=== PATIENT | female | born 1995 | race Caucasian/White ===

== ENCOUNTER → 2016-08-22 | Outpatient (CLI) | payer BC ==
--- NOTE | 2016-08-22 13:19 | US ---
EXAMINATION TYPE: US abdomen complete DATE OF EXAM: 08/22/2016 7:28 AM COMPARISON: NONE CLINICAL HISTORY: R10.11 Right upper quadrant pain. EXAM MEASUREMENTS: Liver Length: 12.1 cm Gallbladder Wall: 0.1 cm CBD: 0.4 cm Spleen: 9.7 cm Right Kidney: 11.1 x 3.8 x 4.5 cm Left Kidney: 10.8 x 5.6 x 5.2 cm Pancreas: Tail partially obscured by overlying bowel gas Liver: wnl Gallbladder: wnl Evidence for sonographic Andrews's sign: No CBD: wnl Spleen: wnl Right Kidney: wnl Left Kidney: wnl Upper IVC: wnl Abd Aorta: partially obscured by overlying bowel gas There is no ascites. The liver is homogenous. The intrahepatic portion of the IVC and proximal abdominal aorta are within normal limits. There is no evidence of cholelithiasis. Common bile duct is unremarkable. The visu alized portions of the pancreas are homogenous. The spleen is unremarkable. Kidneys are symmetric a nd free of hydronephrosis. No renal lesions are seen. IMPRESSION: No significant abnormality evident
== END | disposition home or self-care (01) ==
LOC: RADUSWWP 06:56
PROVIDERS: ATTEND Internal Medicine
DX: R10.11 Right upper quadrant pain (principal)
CPT/HCPCS: 76700

== ENCOUNTER 2016-08-24 08:32 | Emergency (ER) | payer BC ==
[2016-08-24] MEDS ORDERED: SODIUM CHLORIDE 0.9% 1,000 ML IV ONE (09:01)
[2016-08-24] MEDS ORDERED: methylPREDNISolone SOD SUCCI 125 MG/2 ML VIAL IV STA (09:01)
[2016-08-24] MEDS ORDERED: CLINDAMYCIN 150 MG CAP PO STA (09:02)
--- NOTE | 2016-08-24 09:04 | ED ---
General Adult HPI - General Chief complaint: Allergic Reaction Stated complaint: toothache Time Seen by Provider: 08/24/16 08:45 Source: patient, RN notes reviewed Mode of arrival: ambulatory Limitations: no limitations - History of Present Illness Initial comments: Patient is 21-year-old female presents emergency room for evaluation of facial swelling. Patient states that she has 2 bottom molars that are broken and needs to be removed. Patient states she went to [facility] on Sunday and was placed on amoxicillin. Patient states she's been on amoxicillin for the past 5 days. Patient states about 3 days ago she began having swelling on the left side of her lower jaw. Patient states that she woke up this morning and began having swelling under her chin. Patient states she feels like underneath her tongue is swelling. Patient states she wasn't sure she was having an ALLERGIC reaction so she came here to be evaluated. Patient denies any rashes. Patient states she has been having increasing pain under her chin and under her tongue. Patient denies fevers or chills. Patient denies any pus coming out of her tooth. Patient denies any shortness of breath or trouble breathing. - Related Data Home Medications Medication Instructions Recorded Confirmed Acetaminophen-Codeine 300-30mg 1 tab PO Q4H PRN 08/24/16 08/24/16 [Tylenol #3] Amoxicillin 500 mg PO Q8H 08/24/16 08/24/16 Dextroamphetamine/Amphetamine 15 mg PO QAM 08/24/16 08/24/16 [Adderall Xr] Ibuprofen 800 mg PO Q5H PRN 08/24/16 08/24/16 Multivitamin [Multivitamins Adult 2 tab PO DAILY 08/24/16 08/24/16 Gummies] Previous Rx's Medication Instructions Recorded Clindamycin [Cleocin] 300 mg PO Q6H #40 capsule 08/24/16 Ibuprofen 600 mg PO Q4-6H PRN #20 tablet 08/24/16 Allergies Allergy/AdvReac Type Severity Reaction Status Date / Time No Known Allergies Allergy Verified 08/24/16 09:10 Review of Systems ROS Statement: Those systems with pertinent positive or pertinent negative responses have been documented in the HPI. ROS Other: All systems not noted in ROS Statement are negative. Past Medical History Past Medical History: No Reported History History of Any Multi-Drug Resistant Organisms: None Reported Past Surgical History: No Surgical Hx Reported Past Psychological History: No Psychological Hx Reported Smoking Status: Current every day smoker Past Alcohol Use History: None Reported Past Drug Use History: None Reported General Exam - General Exam Comments Initial Comments: Sitting in exam room, no acute distress. Limitations: no limitations General appearance: alert, in no apparent distress Head exam: Present: atraumatic, normocephalic, normal inspection Eye exam: Present: normal appearance ENT exam: Present: other (Left-sided facial edema with mild edema under the chin , no erythema or heat) Expanded Teeth exam: Present: fractured tooth # (), dental tenderness # () Neck exam: Present: normal inspection Respiratory exam: Present: normal lung sounds bilaterally. Absent: respiratory distress Cardiovascular Exam: Present: regular rate, normal rhythm, normal heart sounds Extremities exam: Present: normal inspection Back exam: Present: normal inspection Neurological exam: Present: alert, oriented X3, CN II-XII intact, normal gait Psychiatric exam: Present: normal affect, normal mood Skin exam: Present: warm, dry, intact, normal color. Absent: rash Course Vital Signs 08/24/16 08/24/16 08/24/16 08:33 09:53 10:43 Temperature 97.8 F 98.2 F Pulse Rate 90 87 79 Respiratory 20 16 18 Rate Blood Pressure 127/74 135/70 135/79 O2 Sat by Pulse 98 100 100 Oximetry Medical Decision Making - Medical Decision Making Patient is a 21-year-old female presents to the emergency room for evaluation of facial edema from dental pain. Patient did have some facial edema under her chin. Patient also evaluated by Dr. Siddiqi. Laboratory showed no acute findings. Patient states she feels better after steroids and new antibiotic given. Patient states she would like to be discharged home. Will switch patient from amoxicillin to clindamycin. Advised patient to return for any worsening symptoms. Advised patient to follow-up with oral surgeon or her dentist as soon as possible. Patient is afebrile. Patient's vitals are stable. Patient has no trouble breathing. Patient states she understands everything that was discussed with her. Case discussed with Dr. Siddiqi. - Lab Data Result diagrams: 08/24/16 09:17 08/24/16 09:17 Lab Results 08/24/16 08/24/16 Range/Units 09:17 09:17 WBC 8.4 (3.8-10.6) k/uL RBC 4.23 (3.80-5.40) m/uL Hgb 13.6 (11.4-16.0) gm/dL Hct 39.4 (34.0-46.0) % MCV 93.1 D (80.0-100.0) fL MCH 32.0 (25.0-35.0) pg MCHC 34.4 (31.0-37.0) g/dL RDW 13.2 (11.5-15.5) % Plt Count 234 (150-450) k/uL Neutrophils % 75 % Lymphocytes % 17 % Monocytes % 5 % Eosinophils % 2 % Basophils % 0 % Neutrophils # 6.3 (1.3-7.7) k/uL Lymphocytes # 1.4 (1.0-4.8) k/uL Monocytes # 0.4 (0-1.0) k/uL Eosinophils # 0.1 (0-0.7) k/uL Basophils # 0.0 (0-0.2) k/uL Sodium 139 (137-145) mmol/L Potassium 4.5 (3.5-5.1) mmol/L Chloride 107 (98-107) mmol/L Carbon Dioxide 24 (22-30) mmol/L Anion Gap 8 mmol/L BUN 11 (7-17) mg/dL Creatinine 0.64 (0.52-1.04) mg/dL Est GFR (MDRD) Af Amer >60 (>60 ml/min/1.73 sqM) Est GFR (MDRD) Non-Af >60 (>60 ml/min/1.73 sqM) Glucose 85 (74-99) mg/dL Calcium 9.1 (8.4-10.2) mg/dL Total Bilirubin 0.8 (0.2-1.3) mg/dL AST 29 (14-36) U/L ALT 39 (9-52) U/L Alkaline Phosphatase 58 (38-126) U/L Total Protein 7.6 (6.3-8.2) g/dL Albumin 4.4 (3.5-5.0) g/dL Disposition Clinical Impression: Pain, dental Disposition: HOME SELF-CARE Condition: Good Instructions: Dental Abscess (ED) Additional Instructions: Please follow-up with your dentist or oral surgeon. Discontinue amoxicillin and begin taking clindamycin as directed. Take ibuprofen as needed for pain. Saltwater gargles. Cold fluids can sometimes help with pain as well. Return to the Emergency Room for any worsening or changing symptoms. Use cold compresses to the outside of the face. Prescriptions: Clindamycin [Cleocin] 300 mg PO Q6H #40 capsule Ibuprofen 600 mg PO Q4-6H PRN #20 tablet PRN Reason: Pain Referrals: Karel Braga DDS [STAFF PHYSICIAN] - 1-2 days Time of Disposition: 10:25
[2016-08-24 09:35] LABS: Basophils % (A) 0 %; CHCM 33.4; Eosinophils # (A) 0.1 k/uL (0-0.7); Eosinophils % (A) 2 %; HCT 39.4 % (34.0-46.0); HDW 2.39; HGB 13.6 gm/dL (11.4-16.0); Luc # (Auto) 0.13; Luc % (Auto) 2; Lymphocytes # (A) 1.4 k/uL (1.0-4.8); Lymphocytes % (A) 17 %; MCHC 34.4 g/dL (31.0-37.0); Mean Platelet Volume 7.2; Monocytes # (A) 0.4 k/uL (0-1.0); Monocytes % (A) 5 %; Neutrophils # (A) 6.3 k/uL (1.3-7.7); Neutrophils % (A) 75 %; RBC 4.23 m/uL (3.80-5.40); RDW 13.2 % (11.5-15.5); WBC 8.4 k/uL (3.8-10.6); WBC (Perox) 8.58
[2016-08-24 09:41] LABS: ALT 39 U/L (9-52); AST 29 U/L (14-36); Alkaline Phosphatase 58 U/L (38-126); Anion Gap 8 mmol/L; Blood Urea Nitrogen 11 mg/dL (7-17); Calcium 9.1 mg/dL (8.4-10.2); Carbon Dioxide 24 mmol/L (22-30); Chloride 107 mmol/L (98-107); Glucose 85 mg/dL (74-99); Non-African American GFR(MDRD) >60 (>60 ml/min/1.73 sqM); Potassium 4.5 mmol/L (3.5-5.1); Sodium 139 mmol/L (137-145); Total Bilirubin 0.8 mg/dL (0.2-1.3); Total Protein 7.6 g/dL (6.3-8.2)
[2016-08-24 09:42] LABS: MCV 93.1 fL (80.0-100.0)
[2016-08-24] MEDS ORDERED: IBUPROFEN 600 MG TAB PO STA (10:25)
[2016-08-24 10:43] VITALS: BP 135/79; PULSE 79; RESP 18; TEMP 98.2
== END 2016-08-24 10:43 | disposition home or self-care (01) ==
LOC: EC 08:32
DX: S02.5XXA Fracture of tooth (traumatic), initial encounter for closed fracture (principal); F17.200 Nicotine dependence, unspecified, uncomplicated; Z79.899 Other long term (current) drug therapy; X58.XXXA Exposure to other specified factors, initial encounter
CPT/HCPCS: 36415; 80053; 85025; 99283; 96374; 96361; J2930

== ENCOUNTER 2017-01-20 16:09 | Emergency (ER) | payer BC ==
--- NOTE | 2017-01-20 16:55 | ED ---
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 She do not want him transferred her ultrasound today she is just here to follow-up on her beta hCG quantitative. Since she had this test done at the [facility] we can get some records from the [facility]. She denies any abdominal pain no back pain no abdominal cramps no fever no chills no frequency urgency dysuria, she is not interested in her transfer is no ultrasound or pelvic exam today she is more so interested in beta hCG Last Menstrual Period: 12/02/16 - Related Data Home Medications Medication Instructions Recorded Confirmed No Known Home Medications [No 01/20/17 01/20/17 Known Home Medications] Allergies Allergy/AdvReac Type Severity Reaction Status Date / Time No Known Allergies Allergy Verified 01/20/17 16:53 Review of Systems ROS Statement: Those systems with pertinent positive or pertinent negative responses have been documented in the HPI. ROS Other: All systems not noted in ROS Statement are negative. Past Medical History Past Medical History: No Reported History History of Any Multi-Drug Resistant Organisms: None Reported Past Surgical History: No Surgical Hx Reported Past Psychological History: No Psychological Hx Reported Smoking Status: Former smoker Past Alcohol Use History: None Reported Past Drug Use History: None Reported General Exam - General Exam Comments Initial Comments: General: The patient is awake and alert, in no distress, and does not appear acutely ill. Skin: Skin is warm and dry and no rashes or lesions are noted. Eye: Pupils are equal, round and reactive to light, extra-ocular movements are intact; there is normal conjunctiva bilaterally. Ears, nose, mouth and throat: There are moist mucous membranes and no oral lesions. Neck: The neck is supple, there is no tenderness or JVD. Cardiovascular: There is a regular rate and rhythm. No murmur, rub or gallop is appreciated. Respiratory: To auscultation bilateral, no wheezing no rhonchi no distress respiratory chan noticed Gastrointestinal: Soft, non-distended, non-tender abdomen without masses or organomegaly noted. There is no rebound or guarding present. Bowel sounds are unremarkable. Back: There is no tenderness to palpation in the midline. There is no obvious deformity. Musculoskeletal: Normal ROM, no tenderness, There is no pedal edema. There is no calf tenderness or swelling. No cords were appreciated. Neurological: CN II-XII intact, Cranial nerves III through XII are intact. There are no obvious motor or sensory deficits. Coordination appears grossly intact. Speech is normal. Psychiatric: Cooperative, appropriate mood & affect, normal judgment. Limitations: no limitations Course Vital Signs 01/20/17 16:18 Temperature 98.1 F Pulse Rate 88 Respiratory 20 Rate Blood Pressure 128/59 O2 Sat by Pulse 100 Oximetry We called [facility] and found out to about her beta hCG report yesterday beta hCG was 2414 yesterday and beta-hCG today 1500, this was explained to the patient with the beta hCG level dropping the probability of miscarriage is quite high she be discharged to follow with her family doctor or she is to come back if develops severe bleeding, fever, abdominal pain, abdominal cramps or lower back pain she agrees with the period under normal circumstances she is advised to repeat the beta hCG in couple days, patient did not want to proceed with the pelvic ultrasound today I did the eye did get ultrasound report back from [facility] it shows nonvisualized gestation, they recommended follow- up ultrasound and carotid differential diagnosis includes early failed or non-visualized ectopic though patient hasn't no pain at this point and she has no bleeding at this point - Reevaluation(s) Reevaluation #1: Possibility Ectopic was discussed with the patient and she was advised to come to the ER if there is a abdominal pain or bleeding, and that eventually need a pelvic ultrasound 01/20/17 18:50 Medical Decision Making - Lab Data Result diagrams: 01/20/17 17:10 Lab Results 01/20/17 01/20/17 Range/Units 17:10 17:10 WBC 8.7 (3.8-10.6) k/uL RBC 4.40 (3.80-5.40) m/uL Hgb 13.5 (11.4-16.0) gm/dL Hct 40.6 (34.0-46.0) % MCV 92.2 (80.0-100.0) fL MCH 30.6 (25.0-35.0) pg MCHC 33.2 (31.0-37.0) g/dL RDW 12.8 (11.5-15.5) % Plt Count 299 (150-450) k/uL Neutrophils % 65 % Lymphocytes % 25 % Monocytes % 5 % Eosinophils % 2 % Basophils % 1 % Neutrophils # 5.6 (1.3-7.7) k/uL Lymphocytes # 2.2 (1.0-4.8) k/uL Monocytes # 0.5 (0-1.0) k/uL Eosinophils # 0.2 (0-0.7) k/uL Basophils # 0.1 (0-0.2) k/uL HCG, Quant 1535.7 mIU/mL Disposition Clinical Impression: Threatened Disposition: HOME SELF-CARE Condition: Good Instructions: Threatened Miscarriage (ED) Referrals: Tod Kay MD [Primary Care Provider] - 1-2 days
[2017-01-20 17:18] LABS: Basophils # (A) 0.1 k/uL (0-0.2); Basophils % (A) 1 %; CH 30.9; CHCM 33.6; Eosinophils # (A) 0.2 k/uL (0-0.7); Eosinophils % (A) 2 %; HCT 40.6 % (34.0-46.0); HDW 2.32; HGB 13.5 gm/dL (11.4-16.0); Luc # (Auto) 0.16; Luc % (Auto) 2; Lymphocytes # (A) 2.2 k/uL (1.0-4.8); Lymphocytes % (A) 25 %; MCH 30.6 pg (25.0-35.0); MCHC 33.2 g/dL (31.0-37.0); MCV 92.2 fL (80.0-100.0); Mean Platelet Volume 6.7; Monocytes # (A) 0.5 k/uL (0-1.0); Monocytes % (A) 5 %; Neutrophils # (A) 5.6 k/uL (1.3-7.7); Neutrophils % (A) 65 %; RDW 12.8 % (11.5-15.5); WBC 8.7 k/uL (3.8-10.6); WBC (Perox) 8.67
[2017-01-20 18:59] VITALS: BP 124/57; PULSE 53; RESP 14; TEMP 97.7
== END 2017-01-20 19:05 | disposition home or self-care (01) ==
LOC: EC 16:09
DX: O20.0 Threatened abortion (principal); Z87.891 Personal history of nicotine dependence; Z3A.01 Less than 8 weeks gestation of pregnancy
CPT/HCPCS: 36415; 84702; 85025; 99284

== ENCOUNTER 2017-01-22 11:46 | Emergency (ER) | payer BC ==
[2017-01-22 12:12] VITALS: RESP 18
[2017-01-22] MEDS ORDERED: SODIUM CHLORIDE 0.9% 500 ML IV STA (12:35)
--- NOTE | 2017-01-22 12:38 | ED ---
General Adult HPI - General Chief complaint: Abdominal Pain Stated complaint: ABDOMINAL PAIN Time Seen by Provider: 01/22/17 12:21 Source: patient, RN notes reviewed Mode of arrival: ambulatory Limitations: no limitations - History of Present Illness Initial comments: 21-year-old female presents to the emergency department with a chief complaint of abdominal pain. Patient was seen here a few days ago because she is bleeding in . Patient states she's now pain. pt underwent an Ultrasound that did not see anything. She was so she develop any pain to return the emergency room. Patient states she's now having lower abdominal pain. Patient states she is having some vaginal spotting for her bleeding has. Patient was concerned due to her worsening pain and symptoms so she thought that she should be evaluated. Patient is a . Patient states she's not having any other symptoms at this time. Patient denies any recent fever, chills , shortness of breath, chest pain, back pain, nausea vomiting, numbness or tingling, dysuria or hematuria, constipation or diarrhea, headaches or visual changes, or any other current symptoms. - Related Data Home Medications Medication Instructions Recorded Confirmed No Known Home Medications [No 01/20/17 01/22/17 Known Home Medications] Allergies Allergy/AdvReac Type Severity Reaction Status Date / Time No Known Allergies Allergy Verified 01/22/17 13:42 Review of Systems ROS Statement: Those systems with pertinent positive or pertinent negative responses have been documented in the HPI. ROS Other: All systems not noted in ROS Statement are negative. Past Medical History Past Medical History: No Reported History History of Any Multi-Drug Resistant Organisms: None Reported Past Surgical History: No Surgical Hx Reported Past Psychological History: ADD/ADHD Smoking Status: Former smoker Past Alcohol Use History: None Reported Past Drug Use History: None Reported General Exam - General Exam Comments Initial Comments: General: The patient is awake and alert, in no distress, and does not appear acutely ill. Eye: Pupils are equal, round and reactive to light, extra-ocular movements are intact; there is normal conjunctiva bilaterally. No signs of icterus. Ears, nose, mouth and throat: There are moist mucous membranes. Neck: The neck is supple, there is no tenderness. Cardiovascular: There is a regular rate and rhythm. No murmur, rub or gallop is appreciated. Respiratory: Lungs are clear to auscultation, respirations are non-labored, breath sounds are equal. No wheezes, stridor, rales, or rhonchi. Gastrointestinal: Soft, non-distended, tenderness throughout the lower areas of the abdomen without masses or organomegaly noted. There is no rebound or guarding present. No CVA tenderness. Bowel sounds are unremarkable. Back: There is no tenderness to palpation in the midline. There is no obvious deformity. No rashes noted. Musculoskeletal: Normal ROM, no tenderness, There is no pedal edema. There is no calf tenderness or swelling. Sensation intact. Pulses equal bilaterally 2+. Neurological: CN II-XII intact, There are no obvious motor or sensory deficits. Coordination appears grossly intact. Speech is normal. Skin: Skin is warm and dry and no rashes or lesions are noted. Psychiatric: Cooperative, appropriate mood & affect, normal judgment. Limitations: no limitations Course Vital Signs 01/22/17 12:08 Temperature 99 F Pulse Rate 79 Respiratory 18 Rate Blood Pressure 116/66 O2 Sat by Pulse 100 Oximetry Medical Decision Making - Medical Decision Making 21-year-old female presents emergency room chief complaint of abdominal pain in . At this time patient's lab work has been reviewed as well as ultrasound. This time we discussed clear still. When he struck for a CT level. We discussed needs to be repeated 2 days. She is feeling better at this time. Ultrasound was reviewed and we discussed in detail of reasons to return to the emergency department. The TRAINING ASSISTANT QUESTIONS. She stated that she understood and she is in agreement with this plan. All questions have been answered. She'll be discharged. - Lab Data Result diagrams: 01/22/17 12:54 01/22/17 12:54 Lab Results 01/22/17 01/22/17 01/22/17 Range/Units 12:54 12:54 12:54 WBC 8.1 (3.8-10.6) k/uL RBC 4.26 (3.80-5.40) m/uL Hgb 13.0 (11.4-16.0) gm/dL Hct 39.7 (34.0-46.0) % MCV 93.2 (80.0-100.0) fL MCH 30.5 (25.0-35.0) pg MCHC 32.7 (31.0-37.0) g/dL RDW 12.9 (11.5-15.5) % Plt Count 306 (150-450) k/uL Neutrophils % 74 % Lymphocytes % 16 % Monocytes % 6 % Eosinophils % 2 % Basophils % 1 % Neutrophils # 6.0 (1.3-7.7) k/uL Lymphocytes # 1.3 (1.0-4.8) k/uL Monocytes # 0.5 (0-1.0) k/uL Eosinophils # 0.1 (0-0.7) k/uL Basophils # 0.1 (0-0.2) k/uL Sodium 141 (137-145) mmol/L Potassium 4.2 (3.5-5.1) mmol/L Chloride 107 (98-107) mmol/L Carbon Dioxide 23 (22-30) mmol/L Anion Gap 11 mmol/L BUN 8 (7-17) mg/dL Creatinine 0.68 (0.52-1.04) mg/dL Est GFR (MDRD) Af Amer >60 (>60 ml/min/1.73 sqM) Est GFR (MDRD) Non-Af >60 (>60 ml/min/1.73 sqM) Glucose 81 (74-99) mg/dL Calcium 9.2 (8.4-10.2) mg/dL Total Bilirubin 0.4 (0.2-1.3) mg/dL AST 24 (14-36) U/L ALT 27 (9-52) U/L Alkaline Phosphatase 61 (38-126) U/L Total Protein 7.2 (6.3-8.2) g/dL Albumin 4.3 (3.5-5.0) g/dL HCG, Quant 1371.0 mIU/mL Urine Color Urine Appearance (Clear) Urine pH (5.0-8.0) Ur Specific [place] (1.001-1.035) Urine Protein (Negative) Urine Glucose (UA) (Negative) Urine Ketones (Negative) Urine Blood (Negative) Urine Nitrite (Negative) Urine Bilirubin (Negative) Urine Urobilinogen (<2.0) mg/dL Ur Leukocyte Esterase (Negative) Urine RBC (0-5) /hpf Urine WBC (0-5) /hpf Ur Squamous Epith Cells (0-4) /hpf Blood Type B Positive Blood Type Recheck No 01/22/17 Range/Units 12:54 WBC (3.8-10.6) k/uL RBC (3.80-5.40) m/uL Hgb (11.4-16.0) gm/dL Hct (34.0-46.0) % MCV (80.0-100.0) fL MCH (25.0-35.0) pg MCHC (31.0-37.0) g/dL RDW (11.5-15.5) % Plt Count (150-450) k/uL Neutrophils % % Lymphocytes % % Monocytes % % Eosinophils % % Basophils % % Neutrophils # (1.3-7.7) k/uL Lymphocytes # (1.0-4.8) k/uL Monocytes # (0-1.0) k/uL Eosinophils # (0-0.7) k/uL Basophils # (0-0.2) k/uL Sodium (137-145) mmol/L Potassium (3.5-5.1) mmol/L Chloride (98-107) mmol/L Carbon Dioxide (22-30) mmol/L Anion Gap mmol/L BUN (7-17) mg/dL Creatinine (0.52-1.04) mg/dL Est GFR (MDRD) Af Amer (>60 ml/min/1.73 sqM) Est GFR (MDRD) Non-Af (>60 ml/min/1.73 sqM) Glucose (74-99) mg/dL Calcium (8.4-10.2) mg/dL Total Bilirubin (0.2-1.3) mg/dL AST (14-36) U/L ALT (9-52) U/L Alkaline Phosphatase (38-126) U/L Total Protein (6.3-8.2) g/dL Albumin (3.5-5.0) g/dL HCG, Quant mIU/mL Urine Color Light Yellow Urine Appearance Clear (Clear) Urine pH 6.5 (5.0-8.0) Ur Specific [place] 1.006 (1.001-1.035) Urine Protein Negative (Negative) Urine Glucose (UA) Negative (Negative) Urine Ketones Negative (Negative) Urine Blood Large H (Negative) Urine Nitrite Negative (Negative) Urine Bilirubin Negative (Negative) Urine Urobilinogen <2.0 (<2.0) mg/dL Ur Leukocyte Esterase Trace H (Negative) Urine RBC 3 (0-5) /hpf Urine WBC 2 (0-5) /hpf Ur Squamous Epith Cells 2 (0-4) /hpf Blood Type Blood Type Recheck - Radiology Data Radiology results: report reviewed, image reviewed Disposition Clinical Impression: Threatened Disposition: HOME SELF-CARE Condition: Stable Instructions: Threatened Miscarriage (ED) Additional Instructions: Please use medication as discussed. Please follow up with family doctor if symptoms have not improved over the next two days. Please return to the emergency room if your symptoms increase or worsen or for any other concerns. Referrals: Tod Kay MD [Primary Care Provider] - 1-2 days Carolina Galo DO [Doctor of Osteopathic Medicine] - 1-2 days Time of Disposition: 14:03
[2017-01-22 13:08] LABS: Basophils # (A) 0.1 k/uL (0-0.2); Basophils % (A) 1 %; CH 30.8; CHCM 33.2; Eosinophils # (A) 0.1 k/uL (0-0.7); Eosinophils % (A) 2 %; HCT 39.7 % (34.0-46.0); HDW 2.33; Luc # (Auto) 0.12; Luc % (Auto) 2; Lymphocytes # (A) 1.3 k/uL (1.0-4.8); Lymphocytes % (A) 16 %; MCH 30.5 pg (25.0-35.0); MCHC 32.7 g/dL (31.0-37.0); MCV 93.2 fL (80.0-100.0); Mean Platelet Volume 7.1; Monocytes # (A) 0.5 k/uL (0-1.0); Monocytes % (A) 6 %; Neutrophils % (A) 74 %; RBC 4.26 m/uL (3.80-5.40); RDW 12.9 % (11.5-15.5); WBC 8.1 k/uL (3.8-10.6); WBC (Perox) 7.68
[2017-01-22 13:16] LABS: ALT 27 U/L (9-52); AST 24 U/L (14-36); Alkaline Phosphatase 61 U/L (38-126); Anion Gap 11 mmol/L; Blood Urea Nitrogen 8 mg/dL (7-17); Calcium 9.2 mg/dL (8.4-10.2); Carbon Dioxide 23 mmol/L (22-30); Chloride 107 mmol/L (98-107); Glucose 81 mg/dL (74-99); Non-African American GFR(MDRD) >60 (>60 ml/min/1.73 sqM); Potassium 4.2 mmol/L (3.5-5.1); Sodium 141 mmol/L (137-145); Total Bilirubin 0.4 mg/dL (0.2-1.3); Total Protein 7.2 g/dL (6.3-8.2)
[2017-01-22 13:40] LABS: Appearance,Urine Clear (Clear); Bilirubin,Urine Negative (Negative); Glucose,Urine (UA) Negative (Negative); Ketones,Urine Negative (Negative); Leukocyte Esterase,Urine Trace (Negative); Nitrite,Urine Negative (Negative); PH, Urine 6.5 (5.0-8.0); Particle Count 1104; Protein,Urine Negative (Negative); RBC,Urine 3 /hpf (0-5); Specific Gravity,Urine 1.006 (1.001-1.035); Squamous Epithelial Cell,Urine 2 /hpf (0-4); UA Billing (MACRO vs. MICRO) MICRO; Urobilinogen,Urine <2.0 mg/dL (<2.0); WBC,Urine 2 /hpf (0-5)
--- NOTE | 2017-01-22 13:49 | US ---
EXAMINATION TYPE: US OB <=14 wks transvag DATE OF EXAM: 01/22/2017 COMPARISON: NONE CLINICAL HISTORY: Pain. EXAM PERFORMED: Transvaginal (TV) and Transabdominal (TA) EXAM MEASUREMENTS: GESTATIONAL AGE / DATING Physician Established: Not yet established Dates by LMP: (7 weeks/2 days) EDC: 09/08/17 Dates by First Scan: No previous EDC: Dates by Current Scan for: Unable to date by today's study MATERNAL ANATOMY Uterus: 7.6 x 3.9 x 5.1cm Right Ovary: not visualized Left Ovary: 1.9 x 1.4 x 1.8cm Post CDS / Adnexa: free fluid in cul de sac GESTATION / SURVEY IUP: No IUP seen at this time Date of LMP: 12/02/16 Beta HcG (if available): 1371 There is a moderate fluid in the cul de sac non-vascular tubular structure seen adjacent to uterus po ssible bowel vs other etiology. IMPRESSION: No current evidence for intrauterine , however this may be a within normal limits given the patient's beta hCG and early intrauterine gestation remains a possibility. Right ovary is nonvisualiz ed. Tubular structure adjacent to the left lateral uterus may represent bowel although ectopic pregna ncy is also a possibility moderate amount of free fluid within the posterior cul-de-sac is present an d could be physiologic or related to ectopic . Correlation with trending beta hCGs and repea t pelvic ultrasound in 5-7 days is recommended pending clinical status.
[2017-01-22 14:19] VITALS: BP 131/56; PULSE 71; TEMP 98.1
== END 2017-01-22 14:20 | disposition home or self-care (01) ==
LOC: EC 11:46
DX: O20.0 Threatened abortion (principal); Z87.891 Personal history of nicotine dependence; Z3A.01 Less than 8 weeks gestation of pregnancy
CPT/HCPCS: 36415; 76801; 76817; 80053; 81001; 84702; 85025; 86900; 86901; 96360; 99284

== ENCOUNTER → 2017-01-23 | Outpatient (CLI) | payer BC | END | disposition home or self-care (01) | LOC: LABWHC1 17:09 | PROVIDERS: ATTEND Obstetrics & Gynecology | DX: O03.9 Complete or unspecified spontaneous abortion without complication (principal) | CPT/HCPCS: 36415; 84702 ==

== ENCOUNTER 2017-08-08 16:53 | Observation (INO) | payer BC, OTHER ==
--- NOTE | 2017-08-08 17:45 | ED ---
SOB HPI <Parker Castellon - Last Filed: 08/08/17 19:17> - General Source: patient Mode of arrival: ambulatory Limitations: no limitations <Jaquelin Rodriguez - Last Filed: 08/08/17 20:38> - General Chief Complaint: Shortness of Breath Stated Complaint: Jaw Pain, sore throat Time Seen by Provider: 08/08/17 17:18 - History of Present Illness Initial Comments: 22-year-old female patient presents to the emergency department today for evaluation of chest pain and shortness of breath. Patient states that the pain was in her mid chest and woke her from sleep last evening. States that the pain radiated up into her jaw. Patient states that she felt short of breath during this episode. Patient states that the pain is currently resolved however does increase when she lies on her left side. Patient states that she has had intermittent shortness of breath episodes over the last couple of weeks. Patient states that she is 20 weeks . She is A1, with hx of ectopic . Patient states that she did travel to [place] by a car approximately 2-1/2 weeks ago. Patient states that she did stop frequently and ambulate. Patient states she has been experiencing bilateral foot swelling but denies any calf pain or leg swelling. Patient states that she has been sick with upper respiratory symptoms since Sunday. She reports sore throat, cough, and nasal congestion. She denies any fever or chills. Patient denies any recent rash, abdominal pain, nausea, vomiting, diarrhea, constipation, back pain, numbness, tingling, dizziness, weakness, hematuria, dysuria, urinary urgency, urinary frequency, headache, visual changes, or any other complaints. (Jaquelin Rodriguez) - Related Data Home Medications Medication Instructions Recorded Confirmed Pnv No.95/Ferrous Fum/Folic AC 1 tab PO DAILY 08/08/17 08/08/17 [ Multivitamin Tablet] Allergies Allergy/AdvReac Type Severity Reaction Status Date / Time No Known Allergies Allergy Verified 08/08/17 17:32 Review of Systems ROS Other: All systems not noted in ROS Statement are negative. <Parker Castellon - Last Filed: 08/08/17 19:17> ROS Other: All systems not noted in ROS Statement are negative. <Jaquelin Rodriguez - Last Filed: 08/08/17 20:38> ROS Statement: Those systems with pertinent positive or pertinent negative responses have been documented in the HPI. Past Medical History Past Medical History: No Reported History History of Any Multi-Drug Resistant Organisms: None Reported Past Surgical History: No Surgical Hx Reported Past Psychological History: ADD/ADHD Smoking Status: Former smoker Past Alcohol Use History: None Reported Past Drug Use History: None Reported <Jaquelin Rodriguez M - Last Filed: 08/08/17 20:38> General Exam Limitations: no limitations General appearance: alert, in no apparent distress, other (This is a well- developed, well-nourished adult female patient in no acute distress. Vital signs upon presentation are temperature 98.5F, pulse 89, respirations 18, blood pressure 122/76, pulse ox 98% on room air.) Eye exam: Present: normal appearance, PERRL, EOMI. Absent: scleral icterus, conjunctival injection, periorbital swelling ENT exam: Present: normal exam, normal oropharynx, mucous membranes moist, TM's normal bilaterally Respiratory exam: Present: normal lung sounds bilaterally. Absent: respiratory distress, wheezes, rales, rhonchi, stridor, chest wall tenderness Cardiovascular Exam: Present: regular rate, normal rhythm, normal heart sounds. Absent: systolic murmur, diastolic murmur, rubs, gallop, clicks GI/Abdominal exam: Present: soft, normal bowel sounds, other (Gravid abdomen). Absent: distended, tenderness, guarding, rebound, rigid Extremities exam: Present: normal inspection, full ROM, normal capillary refill , other (Skin to the bilateral lower extremities is pink, warm, and dry. Cap refills less than 3 seconds. Pedal posttibial pulses are 2+ and equal bilaterally.). Absent: tenderness, pedal edema, joint swelling, calf tenderness Neurological exam: Present: alert, oriented X3, CN II-XII intact Psychiatric exam: Present: normal affect, normal mood Skin exam: Present: warm, dry, intact, normal color. Absent: rash <Jaquelin Rodriguez M - Last Filed: 08/08/17 20:38> Vital Signs 08/08/17 08/08/17 08/08/17 16:57 18:47 19:07 Temperature 98.5 F Pulse Rate 89 83 Respiratory 18 18 18 Rate Blood Pressure 122/76 119/56 O2 Sat by Pulse 98 98 Oximetry 08/08/17 08/08/17 08/08/17 19:20 20:22 20:28 Temperature 97.2 F L 98.2 F Pulse Rate 77 81 Respiratory 18 18 Rate Blood Pressure 112/58 118/56 O2 Sat by Pulse 97 99 Oximetry Medical Decision Making - Lab Data Result diagrams: 08/08/17 17:55 08/08/17 17:55 <Parker Castellon - Last Filed: 08/08/17 19:17> - Lab Data Result diagrams: 08/08/17 17:55 08/08/17 17:55 - EKG Data -: EKG Interpreted by Sd <Jaquelin Rodriguez - Last Filed: 08/08/17 20:38> - Medical Decision Making 22-year-old female presenting with chest pain and mild dyspnea. Patient's vital signs are stable. She is currently 20 weeks . Workup in the emergency department shows an EKG with nonspecific T-wave inversion and concern for possible TX depression. Patient has had URI symptoms, there is concern for pericarditis and myocarditis. Laboratory studies do reveal an elevated troponin 0.059. Case discussed with Dr. Farris, recommends echo, repeat EKG in the morning, and serial cardiac enzymes. No heparin at this time for concern for pericarditis. No medications as the patient is comfortable at this time. Case discussed with Dr. Mann who will be consult, no recommendations at this time as the patient is nonviable at 20 weeks. Admitting physician will be Dr. Seaman. (Parker Castellon) 22-year-old female patient 20 weeks presented to the emergency department today for complaints of chest pain. Patient does have viral upper respiratory symptoms. The patient labs reviewed and did reveal mildly elevated troponin. Some minor EKG changes. We are concerned for pericarditis versus myocarditis. Ultrasound of her bilateral lower extremities were negative making the possibility of pulmonary embolism low so we will withhold heparin at this time. I did discuss chest xray and CTA of the chest, but patient refused testing due to the . My attending Dr. Castellon did speak to Dr. Farris computer bookkeeper, Dr. Frederick [employer]ER, and [facility], I'll agree to admission. She'll be placed on telemetry and selective care unit. Did discuss findings and results and plan with the patient. She verbalizes understanding and agreement. (Jaquelin Rodriguez) - Lab Data Lab Results 08/08/17 08/08/17 08/08/17 Range/Units 17:55 17:55 17:55 WBC 7.5 (3.8-10.6) k/uL RBC 3.48 L (3.80-5.40) m/uL Hgb 10.9 L (11.4-16.0) gm/dL Hct 31.4 L (34.0-46.0) % MCV 90.2 (80.0-100.0) fL MCH 31.2 (25.0-35.0) pg MCHC 34.6 (31.0-37.0) g/dL RDW 13.9 (11.5-15.5) % Plt Count 207 (150-450) k/uL Neutrophils % 71 % Lymphocytes % 18 % Monocytes % 8 % Eosinophils % 1 % Basophils % 0 % Neutrophils # 5.3 (1.3-7.7) k/uL Lymphocytes # 1.3 (1.0-4.8) k/uL Monocytes # 0.6 (0-1.0) k/uL Eosinophils # 0.1 (0-0.7) k/uL Basophils # 0.0 (0-0.2) k/uL PT (9.0-12.0) sec INR (<1.2) APTT (22.0-30.0) sec Sodium 139 (137-145) mmol/L Potassium 3.6 (3.5-5.1) mmol/L Chloride 106 (98-107) mmol/L Carbon Dioxide 20 L (22-30) mmol/L Anion Gap 13 mmol/L BUN 6 L (7-17) mg/dL Creatinine 0.46 L (0.52-1.04) mg/dL Est GFR (CKD-EPI)AfAm >90 (>60 ml/min/1.73 sqM) Est GFR (CKD-EPI)NonAf >90 (>60 ml/min/1.73 sqM) Glucose 97 (74-99) mg/dL Calcium 9.0 (8.4-10.2) mg/dL Total Bilirubin 0.3 (0.2-1.3) mg/dL AST 20 (14-36) U/L ALT 22 (9-52) U/L Alkaline Phosphatase 70 (38-126) U/L Total Creatine Kinase 47 (30-135) U/L CK-MB (CK-2) 0.3 (0.0-2.4) ng/mL CK-MB (CK-2) Rel Index 0.6 Troponin I 0.059 H* (0.000-0.034) ng/mL Total Protein 6.0 L (6.3-8.2) g/dL Albumin 3.6 (3.5-5.0) g/dL Urine Color Urine Appearance (Clear) Urine pH (5.0-8.0) Ur Specific [place] (1.001-1.035) Urine Protein (Negative) Urine Glucose (UA) (Negative) Urine Ketones (Negative) Urine Blood (Negative) Urine Nitrite (Negative) Urine Bilirubin (Negative) Urine Urobilinogen (<2.0) mg/dL Ur Leukocyte Esterase (Negative) Urine RBC (0-5) /hpf Urine WBC (0-5) /hpf Ur Squamous Epith Cells (0-4) /hpf Urine Bacteria (None) /hpf Urine Mucus (None) /hpf 08/08/17 08/08/17 Range/Units 17:55 17:55 WBC (3.8-10.6) k/uL RBC (3.80-5.40) m/uL Hgb (11.4-16.0) gm/dL Hct (34.0-46.0) % MCV (80.0-100.0) fL MCH (25.0-35.0) pg MCHC (31.0-37.0) g/dL RDW (11.5-15.5) % Plt Count (150-450) k/uL Neutrophils % % Lymphocytes % % Monocytes % % Eosinophils % % Basophils % % Neutrophils # (1.3-7.7) k/uL Lymphocytes # (1.0-4.8) k/uL Monocytes # (0-1.0) k/uL Eosinophils # (0-0.7) k/uL Basophils # (0-0.2) k/uL PT 9.4 (9.0-12.0) sec INR 0.9 (<1.2) APTT 22.7 (22.0-30.0) sec Sodium (137-145) mmol/L Potassium (3.5-5.1) mmol/L Chloride (98-107) mmol/L Carbon Dioxide (22-30) mmol/L Anion Gap mmol/L BUN (7-17) mg/dL Creatinine (0.52-1.04) mg/dL Est GFR (CKD-EPI)AfAm (>60 ml/min/1.73 sqM) Est GFR (CKD-EPI)NonAf (>60 ml/min/1.73 sqM) Glucose (74-99) mg/dL Calcium (8.4-10.2) mg/dL Total Bilirubin (0.2-1.3) mg/dL AST (14-36) U/L ALT (9-52) U/L Alkaline Phosphatase (38-126) U/L Total Creatine Kinase (30-135) U/L CK-MB (CK-2) (0.0-2.4) ng/mL CK-MB (CK-2) Rel Index Troponin I (0.000-0.034) ng/mL Total Protein (6.3-8.2) g/dL Albumin (3.5-5.0) g/dL Urine Color Yellow Urine Appearance Cloudy H (Clear) Urine pH 6.0 (5.0-8.0) Ur Specific [place] 1.013 (1.001-1.035) Urine Protein Trace H (Negative) Urine Glucose (UA) Negative (Negative) Urine Ketones Negative (Negative) Urine Blood Small H (Negative) Urine Nitrite Negative (Negative) Urine Bilirubin Negative (Negative) Urine Urobilinogen <2.0 (<2.0) mg/dL Ur Leukocyte Esterase Small H (Negative) Urine RBC 13 H (0-5) /hpf Urine WBC 4 (0-5) /hpf Ur Squamous Epith Cells 9 H (0-4) /hpf Urine Bacteria Few H (None) /hpf Urine Mucus Occasional H (None) /hpf - EKG Data EKG Comments: EKG obtained at 1745 shows normal sinus rhythm with a ventricular rate of 86, TX interval 150, QR religious 84, QT 366, QTc 437. No evidence of ST elevation or depression. (Jaquelin Rodriguez) Disposition <Parker Castellon - Last Filed: 08/08/17 19:17> Decision to Admit Reason: Admit from EC Decision Date: 08/08/17 Decision Time: 19:22 <Jaquelin Rodriguez - Last Filed: 08/08/17 20:38> Clinical Impression: Chest pain, Viral upper respiratory illness, Elevated troponin Narrative: Concern for marcia/myocarditis (Jaquelin Rodriguez) Disposition: ADMITTED IP TO THIS [facility] Condition: Serious
[2017-08-08 18:10] LABS: Basophils % (A) 0 %; Eosinophils # (A) 0.1 k/uL (0-0.7); Eosinophils % (A) 1 %; HCT 31.4 % (34.0-46.0); HGB 10.9 gm/dL (11.4-16.0); Lymphocytes # (A) 1.3 k/uL (1.0-4.8); Lymphocytes % (A) 18 %; MCH 31.2 pg (25.0-35.0); MCHC 34.6 g/dL (31.0-37.0); MCV 90.2 fL (80.0-100.0); Mean Platelet Volume 7.8; Monocytes # (A) 0.6 k/uL (0-1.0); Monocytes % (A) 8 %; Neutrophils # (A) 5.3 k/uL (1.3-7.7); Neutrophils % (A) 71 %; Platelet Count 207 k/uL (150-450); RBC 3.48 m/uL (3.80-5.40); RDW 13.9 % (11.5-15.5); WBC 7.5 k/uL (3.8-10.6)
[2017-08-08 18:15] LABS: Appearance,Urine Cloudy (Clear); Bacteria,Urine Few /hpf; Bilirubin,Urine Negative (Negative); Blood,Urine Small (Negative); Color,Urine Yellow; Glucose,Urine (UA) Negative (Negative); Ketones,Urine Negative (Negative); Leukocyte Esterase,Urine Small (Negative); Mucus,Urine Occasional /hpf; Nitrite,Urine Negative (Negative); Protein,Urine Trace (Negative); RBC,Urine 13 /hpf (0-5); Specific Gravity,Urine 1.013 (1.001-1.035); Squamous Epithelial Cell,Urine 9 /hpf (0-4); Urobilinogen,Urine <2.0 mg/dL (<2.0); WBC,Urine 4 /hpf (0-5)
[2017-08-08 18:19] LABS: ALT 22 U/L (9-52); AST 20 U/L (14-36); Albumin 3.6 g/dL (3.5-5.0); Alkaline Phosphatase 70 U/L (38-126); Anion Gap 13 mmol/L; Blood Urea Nitrogen 6 mg/dL (7-17); Carbon Dioxide 20 mmol/L (22-30); Chloride 106 mmol/L (98-107); Glucose 97 mg/dL (74-99); Potassium 3.6 mmol/L (3.5-5.1); Sodium 139 mmol/L (137-145); Total Bilirubin 0.3 mg/dL (0.2-1.3)
[2017-08-08 18:22] LABS: INR 0.9 (<1.2); Partial Thromboplastin Time 22.7 sec (22.0-30.0); Prothrombin Time 9.4 sec (9.0-12.0)
[2017-08-08 18:47] LABS: Creatine Kinase MB 0.3 ng/mL (0.0-2.4)
--- NOTE | 2017-08-08 18:48 | US ---
EXAMINATION TYPE: US venous doppler duplex LE BI DATE OF EXAM: 08/08/2017 5:41 PM COMPARISON: NONE CLINICAL HISTORY: Pain. Chest pain SIDE PERFORMED: Bilateral TECHNIQUE: The lower extremity deep venous system is examined utilizing real time linear array sonog fely with graded compression, doppler sonography and color-flow sonography. VESSELS IMAGED: External Iliac Vein (EIV) Common Femoral Vein Deep Femoral Vein Greater Saphenous Vein * Femoral Vein Popliteal Vein Small Saphenous Vein * Proximal Calf Veins (* superficial vessels) Right Leg: Negative for DVT Left Leg: Negative for DVT No evidence of DVT bilateral legs. IMPRESSION: Negative exam. No evidence of deep venous thrombosis in both legs.
[2017-08-08 18:51] LABS: Troponin I 0.059 ng/mL (0.000-0.034)
[2017-08-08] MEDS ORDERED: NALOXONE 0.4 MG/ML 1 ML VIAL IV PRN (19:16)
[2017-08-08] MEDS ORDERED: ACETAMINOPHEN TAB 325 MG TAB PO PRN ×2 (19:16→21:09)
[2017-08-08] MEDS ORDERED: ONDANSETRON 4 MG/2 ML VIAL IVP PRN (21:09)
[2017-08-08 21:14] VITALS: BMI 30.7
--- NOTE | 2017-08-08 21:20 | P.HPIM ---
History of Present Illness H&P Date: 08/08/17 This is a 22 year all female who is and admitted to the hospital with chest pain that has been going for around a day it's substernal radiates to the back and also some left shoulder pain with some jaw radiation states that she has been having shortness of breath but this has been going for the last several weeks no major change in the shortness of breath mainly when lying flat the chest pain is all the times and not associated with exertion Review of systems and systems has been reviewed all negative and positive findings as per hpi Past Medical History: No Reported History History of Any Multi-Drug Resistant Organisms: None Reported Past Surgical History: No Surgical Hx Reported Past Psychological History: ADD/ADHD Smoking Status: Former smoker Past Alcohol Use History: None Reported Past Drug Use History: None Reported Vital Signs - 24 hr 08/08/17 08/08/17 08/08/17 16:57 18:47 19:07 Temperature 98.5 F Pulse Rate 89 83 Pulse Rate [ Right Supine Pulse Oximetery ] Respiratory 18 18 18 Rate Blood Pressure 122/76 119/56 Blood Pressure [Right Arm Supine] O2 Sat by Pulse 98 98 Oximetry 08/08/17 08/08/17 08/08/17 19:20 19:59 20:22 Temperature 97.2 F L 97 F L Pulse Rate 77 81 Pulse Rate [ 81 Right Supine Pulse Oximetery ] Respiratory 18 18 18 Rate Blood Pressure 112/58 118/56 Blood Pressure 114/68 [Right Arm Supine] O2 Sat by Pulse 97 99 99 Oximetry 08/08/17 20:28 Temperature 98.2 F Pulse Rate Pulse Rate [ Right Supine Pulse Oximetery ] Respiratory Rate Blood Pressure Blood Pressure [Right Arm Supine] O2 Sat by Pulse Oximetry Laboratory Results - last 24 hr 08/08/17 08/08/17 08/08/17 17:55 17:55 17:55 WBC 7.5 RBC 3.48 L Hgb 10.9 L Hct 31.4 L MCV 90.2 MCH 31.2 MCHC 34.6 RDW 13.9 Plt Count 207 Neutrophils % 71 Lymphocytes % 18 Monocytes % 8 Eosinophils % 1 Basophils % 0 Neutrophils # 5.3 Lymphocytes # 1.3 Monocytes # 0.6 Eosinophils # 0.1 Basophils # 0.0 PT INR APTT Sodium 139 Potassium 3.6 Chloride 106 Carbon Dioxide 20 L Anion Gap 13 BUN 6 L Creatinine 0.46 L Est GFR (CKD-EPI)AfAm >90 Est GFR (CKD-EPI)NonAf >90 Glucose 97 Calcium 9.0 Total Bilirubin 0.3 AST 20 ALT 22 Alkaline Phosphatase 70 Total Creatine Kinase 47 CK-MB (CK-2) 0.3 CK-MB (CK-2) Rel Index 0.6 Troponin I 0.059 H* Total Protein 6.0 L Albumin 3.6 Urine Color Urine Appearance Urine pH Ur Specific [place] Urine Protein Urine Glucose (UA) Urine Ketones Urine Blood Urine Nitrite Urine Bilirubin Urine Urobilinogen Ur Leukocyte Esterase Urine RBC Urine WBC Ur Squamous Epith Cells Urine Bacteria Urine Mucus 08/08/17 08/08/17 17:55 17:55 WBC RBC Hgb Hct MCV MCH MCHC RDW Plt Count Neutrophils % Lymphocytes % Monocytes % Eosinophils % Basophils % Neutrophils # Lymphocytes # Monocytes # Eosinophils # Basophils # PT 9.4 INR 0.9 APTT 22.7 Sodium Potassium Chloride Carbon Dioxide Anion Gap BUN Creatinine Est GFR (CKD-EPI)AfAm Est GFR (CKD-EPI)NonAf Glucose Calcium Total Bilirubin AST ALT Alkaline Phosphatase Total Creatine Kinase CK-MB (CK-2) CK-MB (CK-2) Rel Index Troponin I Total Protein Albumin Urine Color Yellow Urine Appearance Cloudy H Urine pH 6.0 Ur Specific [place] 1.013 Urine Protein Trace H Urine Glucose (UA) Negative Urine Ketones Negative Urine Blood Small H Urine Nitrite Negative Urine Bilirubin Negative Urine Urobilinogen <2.0 Ur Leukocyte Esterase Small H Urine RBC 13 H Urine WBC 4 Ur Squamous Epith Cells 9 H Urine Bacteria Few H Urine Mucus Occasional H Constitutional: No acute distress, conversant, pleasant Eyes: Anicteric sclerae, moist conjunctiva, no lid-lag PERRLA ENMT: NC/AT Oropharynx clear, no erythema, exudates Neck: Supple, FROM, no masses, or JVD No carotid bruits No thyromegaly Lungs: Clear to auscultation Clear to percussion Normal respiratory effort, no accessory muscle use Cardiovascular: Heart regular in rate and rhythm, No murmurs, gallops, or rubs No peripheral edema Abdominal: Soft Nontender, no guarding, rebound or rigidity Abdomen moving with respiration d Skin: Normal temperature, tone, texture, turgor No induration No subcutaneous nodules No rash, lesions No ulcers Extremities: No digital cyanosis No clubbing Pedal pulses intact and symmetrical Radial pulses intact and symmetrical Normal gait and station No calf tenderness Psychiatric:Alert and oriented to person, place and time Appropriate affect Intact judgement Neuro: No obvious weakness Assessment and plan chest pain in a patient who is 20 weeks Cardiology has been consulted and recommended to have echocardiogram Currently doubt PE the patient is not tachycardic and not actively short of breath but we will monitor it closely we will also consider pulmonology consult OB has been consulted Patient is hemodynamically stable and does not appear to be in distress patient does have musculoskeletal tenderness in the left shoulder area could be the cause all status chest pain DVT and GI prophylaxis Will encourage ambulation as will not be able to start any heparin or Lovenox until pericarditis or myocarditis is ruled out by the echocardiogram Past Medical History Past Medical History: No Reported History History of Any Multi-Drug Resistant Organisms: None Reported Past Surgical History: No Surgical Hx Reported Additional Past Surgical History / Comment(s): pt had ectopic approx dec 2016 and pt stated that she had "2 shots" to remove the tubal . Past Anesthesia/Blood Transfusion Reactions: No Reported Reaction Past Psychological History: ADD/ADHD Smoking Status: Former smoker Past Alcohol Use History: None Reported Past Drug Use History: None Reported - Past Family History Father Additional Family Medical History / Comment(s): pt stated that her father had MRSA Mother Additional Family Medical History / Comment(s): pt stated that her mother has no med hx Medications and Allergies Home Medications Medication Instructions Recorded Confirmed Type Pnv No.95/Ferrous Fum/Folic AC 1 tab PO DAILY 08/08/17 08/08/17 History [ Multivitamin Tablet] Allergies Allergy/AdvReac Type Severity Reaction Status Date / Time No Known Allergies Allergy Verified 08/08/17 17:32 Physical Exam Vitals: Vital Signs Temp Pulse Pulse Resp BP BP Pulse Ox 08/08/17 20:28 98.2 F 08/08/17 20:22 81 18 118/56 99 08/08/17 19:59 97 F L 81 18 114/68 99 08/08/17 19:20 97.2 F L 77 18 112/58 97 08/08/17 19:07 83 18 119/56 98 08/08/17 18:47 18 08/08/17 16:57 98.5 F 89 18 122/76 98 Intake and Output 08/08/17 08/08/17 08/08/17 06:59 14:59 22:59 Intake Total 200 Balance 200 Intake: Oral 200 Other: Weight 81.1 kg Results CBC & Chem 7: 08/08/17 17:55 08/08/17 17:55 Labs: Abnormal Lab Results - Last 24 Hours (Table) 08/08/17 08/08/17 08/08/17 Range/Units 17:55 17:55 17:55 RBC 3.48 L (3.80-5.40) m/uL Hgb 10.9 L (11.4-16.0) gm/dL Hct 31.4 L (34.0-46.0) % Carbon Dioxide 20 L (22-30) mmol/L BUN 6 L (7-17) mg/dL Creatinine 0.46 L (0.52-1.04) mg/dL Troponin I 0.059 H* (0.000-0.034) ng/mL Total Protein 6.0 L (6.3-8.2) g/dL Urine Appearance (Clear) Urine Protein (Negative) Urine Blood (Negative) Ur Leukocyte Esterase (Negative) Urine RBC (0-5) /hpf Ur Squamous Epith Cells (0-4) /hpf Urine Bacteria (None) /hpf Urine Mucus (None) /hpf 08/08/17 Range/Units 17:55 RBC (3.80-5.40) m/uL Hgb (11.4-16.0) gm/dL Hct (34.0-46.0) % Carbon Dioxide (22-30) mmol/L BUN (7-17) mg/dL Creatinine (0.52-1.04) mg/dL Troponin I (0.000-0.034) ng/mL Total Protein (6.3-8.2) g/dL Urine Appearance Cloudy H (Clear) Urine Protein Trace H (Negative) Urine Blood Small H (Negative) Ur Leukocyte Esterase Small H (Negative) Urine RBC 13 H (0-5) /hpf Ur Squamous Epith Cells 9 H (0-4) /hpf Urine Bacteria Few H (None) /hpf Urine Mucus Occasional H (None) /hpf Thrombosis Risk Factor Assmnt - Choose All That Apply Any of the Below Risk Factors Present?: No Other Risk Factors: No Other congenital or acquired thrombophilia - If yes, enter type in comment: No Thrombosis Risk Factor Assessment Level: Very Low Risk
[2017-08-08] MEDS: SODIUM CHLORIDE 0.9% 1,000 ML IV SCH (22:00)
[2017-08-09 01:49] LABS: Creatine Kinase MB 0.9 ng/mL (0.0-2.4)
[2017-08-09 01:54] LABS: Troponin I 0.225 ng/mL (0.000-0.034)
[2017-08-09 05:50] LABS: Basophils % (A) 0 %; Eosinophils # (A) 0.1 k/uL (0-0.7); Eosinophils % (A) 2 %; HCT 30.9 % (34.0-46.0); HGB 10.4 gm/dL (11.4-16.0); Lymphocytes # (A) 1.5 k/uL (1.0-4.8); Lymphocytes % (A) 18 %; MCH 30.7 pg (25.0-35.0); MCHC 33.7 g/dL (31.0-37.0); MCV 90.9 fL (80.0-100.0); Mean Platelet Volume 7.5; Monocytes # (A) 0.4 k/uL (0-1.0); Monocytes % (A) 5 %; Neutrophils % (A) 73 %; Platelet Count 213 k/uL (150-450); RDW 13.8 % (11.5-15.5); WBC 8.2 k/uL (3.8-10.6)
[2017-08-09 06:00] LABS: ALT 17 U/L (9-52); AST 14 U/L (14-36); Alkaline Phosphatase 61 U/L (38-126); Anion Gap 10 mmol/L; Blood Urea Nitrogen 7 mg/dL (7-17); Calcium 8.6 mg/dL (8.4-10.2); Carbon Dioxide 23 mmol/L (22-30); Chloride 107 mmol/L (98-107); Glucose 86 mg/dL (74-99); Potassium 3.9 mmol/L (3.5-5.1); Sodium 140 mmol/L (137-145); Total Bilirubin 0.1 mg/dL (0.2-1.3); Total Protein 5.4 g/dL (6.3-8.2)
[2017-08-09 06:21] LABS: Creatine Kinase MB 1.1 ng/mL (0.0-2.4)
[2017-08-09 06:25] LABS: Troponin I 0.243 ng/mL (0.000-0.034)
--- NOTE | 2017-08-09 08:50 | P.OBCN ---
History of Present Illness Consult date: 08/09/17 Reason for consult: early problem (20 weeks gestation), other Chief complaint: Chest pain at 20 weeks gestation History of present illness: Patient is a 22-year-old female who is proxy 20 weeks and well known to myself and my practice. Yesterday she arrived via the emergency room complaining of chest pain and subsequent has been admitted to [facility] for suspected carditis. From an obstetrical standpoint other than daily heart tones and potentially vitamins there really is nothing else that we would necessarily do at this time. Should her condition deteriorate and need to be transferred she would need to be transferred to hospital has a maternal medicine specialist. However as she is 20 weeks and is likely 4 weeks from viability there is very limited that we would do an in so far as intervention anyway. In seeing her this morning she was having her echocardiogram done but relates that her chest pain has almost completely resolved and she is feeling much better today. Assessment 20 weeks with chest pain. Plan continue with medical and heart etiology recommendations and will plan to do daily heart tones. Most likely once discharged and she is seeing me on an outpatient basis again will plan to have her scheduled with maternal medicine to make sure there is no other concerns Past Medical History Past Medical History: No Reported History History of Any Multi-Drug Resistant Organisms: None Reported Past Surgical History: No Surgical Hx Reported Additional Past Surgical History / Comment(s): pt had ectopic approx dec 2016 and pt stated that she had "2 shots" to remove the tubal . Past Anesthesia/Blood Transfusion Reactions: No Reported Reaction Past Psychological History: ADD/ADHD Smoking Status: Former smoker Past Alcohol Use History: None Reported Past Drug Use History: None Reported - Past Family History Father Additional Family Medical History / Comment(s): pt stated that her father had MRSA Mother Additional Family Medical History / Comment(s): pt stated that her mother has no med hx Medications and Allergies Home Medications Medication Instructions Recorded Confirmed Type Pnv No.95/Ferrous Fum/Folic AC 1 tab PO DAILY 08/08/17 08/08/17 History [ Multivitamin Tablet] Allergies Allergy/AdvReac Type Severity Reaction Status Date / Time No Known Allergies Allergy Verified 08/08/17 17:32 Exam Osteopathic Statement: *. No significant issues noted on an osteopathic structural exam other than those noted in the History and Physical/Consult. - Vital Signs Vital signs: Vital Signs Temp Pulse Pulse Resp BP BP Pulse Ox 08/09/17 04:00 97 F L 74 17 99/59 99 08/08/17 23:52 77 17 08/08/17 23:45 97 F L 77 17 118/59 99 18 21:00 81 18 08/08/17 20:28 98.2 F 08/08/17 20:22 81 18 118/56 99 08/08/17 19:59 97 F L 81 18 114/68 99 08/08/17 19:20 97.2 F L 77 18 112/58 97 08/08/17 19:07 83 18 119/56 98 08/08/17 18:47 18 08/08/17 16:57 98.5 F 89 18 122/76 98 Intake and Output 08/08/17 08/09/17 08/09/17 22:59 06:59 14:59 Intake Total 200 450 Balance 200 450 Intake: Intake, IV Titration 450 Amount Sodium Chloride 0.9% 1, 450 000 ml @ 50 mls/hr IV . Q20H [facility] Rx#:[id number] Oral 200 Other: Voiding Method Toilet Toilet # Voids 1 Weight 81.1 kg 81.1 kg Results Result Diagrams: 08/09/17 05:28 08/09/17 05:28 Abnormal Lab Results - Last 24 Hours (Table) 08/08/17 08/08/17 08/08/17 Range/Units 17:55 17:55 17:55 RBC 3.48 L (3.80-5.40) m/uL Hgb 10.9 L (11.4-16.0) gm/dL Hct 31.4 L (34.0-46.0) % Carbon Dioxide 20 L (22-30) mmol/L BUN 6 L (7-17) mg/dL Creatinine 0.46 L (0.52-1.04) mg/dL Total Bilirubin (0.2-1.3) mg/dL Troponin I 0.059 H* (0.000-0.034) ng/mL Total Protein 6.0 L (6.3-8.2) g/dL Albumin (3.5-5.0) g/dL Urine Appearance (Clear) Urine Protein (Negative) Urine Blood (Negative) Ur Leukocyte Esterase (Negative) Urine RBC (0-5) /hpf Ur Squamous Epith Cells (0-4) /hpf Urine Bacteria (None) /hpf Urine Mucus (None) /hpf 08/08/17 08/09/17 08/09/17 Range/Units 17:55 00:30 05:28 RBC (3.80-5.40) m/uL Hgb (11.4-16.0) gm/dL Hct (34.0-46.0) % Carbon Dioxide (22-30) mmol/L BUN (7-17) mg/dL Creatinine (0.52-1.04) mg/dL Total Bilirubin (0.2-1.3) mg/dL Troponin I 0.225 H* 0.243 H* (0.000-0.034) ng/mL Total Protein (6.3-8.2) g/dL Albumin (3.5-5.0) g/dL Urine Appearance Cloudy H (Clear) Urine Protein Trace H (Negative) Urine Blood Small H (Negative) Ur Leukocyte Esterase Small H (Negative) Urine RBC 13 H (0-5) /hpf Ur Squamous Epith Cells 9 H (0-4) /hpf Urine Bacteria Few H (None) /hpf Urine Mucus Occasional H (None) /hpf 08/09/17 08/09/17 Range/Units 05:28 05:28 RBC 3.40 L (3.80-5.40) m/uL Hgb 10.4 L (11.4-16.0) gm/dL Hct 30.9 L (34.0-46.0) % Carbon Dioxide (22-30) mmol/L BUN (7-17) mg/dL Creatinine 0.50 L (0.52-1.04) mg/dL Total Bilirubin 0.1 L (0.2-1.3) mg/dL Troponin I (0.000-0.034) ng/mL Total Protein 5.4 L (6.3-8.2) g/dL Albumin 3.0 L (3.5-5.0) g/dL Urine Appearance (Clear) Urine Protein (Negative) Urine Blood (Negative) Ur Leukocyte Esterase (Negative) Urine RBC (0-5) /hpf Ur Squamous Epith Cells (0-4) /hpf Urine Bacteria (None) /hpf Urine Mucus (None) /hpf Microbiology - Last 24 Hours (Table) 08/08/17 17:55 Urine Culture - Preliminary Urine,Voided
--- NOTE | 2017-08-09 09:12 | P.CRDCN ---
History of Present Illness Consult date: 08/09/17 Requesting physician: Juana Seaman Consult reason: chest pain Chief complaint: Chest pain History of present illness: This is a pleasant 22-year-old female who is currently 20 weeks , she states that she did have an ectopic last year, she does have history of nicotine dependence, occasionally would drink alcohol but since she became she has not smoked or drank alcohol. She does not have any history of any heart problems in the past she is a nondiabetic. Patient presents to the hospital with symptoms of bilateral jaw discomfort and associated chest pressure and heaviness. She also states that she had difficulty taking a deep breath. She also states that she has had a cold recently, with a sinus congestion and sore throat. Initial EKG on arrival here showed a normal sinus rhythm with a nonspecific T wave changes noted in the anterior leads. . Subsequent EKG performed shows normal sinus rhythm with T- wave inversion noted in the anterior leads. Bilateral venous duplex study negative for DVT. Blood pressure on arrival 122/70 with a heart rate in the 80s , 98% on room air. Temperature 98.5. Let pressure this morning 99/58, heart rate in the 70s, temperature 90.7, 99% on room air. Laboratory data was reviewed, white blood cell count is normal, hemoglobin 10.4, platelet count 213. Sodium 140, potassium 3.9, BUN 7, creatinine 0.5. Troponin 0.059, 0.2-5, 0.243. At the time of my examination this morning, she is currently chest pain- free, breathing is stable. Past Medical History Past Medical History: No Reported History History of Any Multi-Drug Resistant Organisms: None Reported Past Surgical History: No Surgical Hx Reported Additional Past Surgical History / Comment(s): pt had ectopic approx dec 2016 and pt stated that she had "2 shots" to remove the tubal . Past Anesthesia/Blood Transfusion Reactions: No Reported Reaction Past Psychological History: ADD/ADHD Smoking Status: Former smoker Past Alcohol Use History: None Reported Past Drug Use History: None Reported - Past Family History Father Additional Family Medical History / Comment(s): pt stated that her father had MRSA Mother Additional Family Medical History / Comment(s): pt stated that her mother has no med hx Medications and Allergies Home Medications Medication Instructions Recorded Confirmed Type Pnv No.95/Ferrous Fum/Folic AC 1 tab PO DAILY 08/08/17 08/08/17 History [ Multivitamin Tablet] Allergies Allergy/AdvReac Type Severity Reaction Status Date / Time No Known Allergies Allergy Verified 08/08/17 17:32 Physical Exam Vitals: Vital Signs Temp Pulse Pulse Resp BP BP Pulse Ox 08/09/17 04:00 97 F L 74 17 99/59 99 08/08/17 23:52 77 17 08/08/17 23:45 97 F L 77 17 118/59 99 08/08/17 21:00 81 18 08/08/17 20:28 98.2 F 08/08/17 20:22 81 18 118/56 99 08/08/17 19:59 97 F L 81 18 114/68 99 08/08/17 19:20 97.2 F L 77 18 112/58 97 08/08/17 19:07 83 18 119/56 98 08/08/17 18:47 18 08/08/17 16:57 98.5 F 89 18 122/76 98 Intake and Output 08/08/17 08/09/17 08/09/17 22:59 06:59 14:59 Intake Total 200 450 Balance 200 450 Intake: Intake, IV Titration 450 Amount Sodium Chloride 0.9% 1, 450 000 ml @ 50 mls/hr IV . Q20H [facility] Rx#:[id number] Oral 200 Other: Voiding Method Toilet Toilet # Voids 1 Weight 81.1 kg 81.1 kg PHYSICAL EXAMINATION: HEENT: Head is atraumatic, normocephalic. Pupils equal, round. Neck is supple. There is no elevated jugular venous pressure. HEART EXAMINATION: Heart S1, S2 normal. No murmur or gallop heard. CHEST EXAMINATION: Lungs are clear to auscultation and precussion. No chest wall tenderness is noted on palpation or with deep breathing. ABDOMEN: Soft, nontender. Bowel sounds are heard. No organomegaly noted. EXTREMITIES: 2+ peripheral pulses with no evidence of peripheral edema and no calf tenderness noted. NEUROLOGIC patient is awake, alert and oriented -3. . Results 08/09/17 05:28 08/09/17 05:28 Cardiac Enzymes 08/08/17 08/08/17 08/09/17 Range/Units 17:55 17:55 00:30 AST 20 (14-36) U/L CK-MB (CK-2) 0.3 0.9 (0.0-2.4) ng/mL Troponin I 0.059 H* 0.225 H* (0.000-0.034) ng/mL 18 08/09/17 Range/Units 05:28 05:28 AST 14 (14-36) U/L CK-MB (CK-2) 1.1 (0.0-2.4) ng/mL Troponin I 0.243 H* (0.000-0.034) ng/mL Coagulation 08/08/17 Range/Units 17:55 PT 9.4 (9.0-12.0) sec APTT 22.7 (22.0-30.0) sec CBC 08/08/17 08/09/17 Range/Units 17:55 05:28 WBC 7.5 8.2 (3.8-10.6) k/uL RBC 3.48 L 3.40 L (3.80-5.40) m/uL Hgb 10.9 L 10.4 L (11.4-16.0) gm/dL Hct 31.4 L 30.9 L (34.0-46.0) % Plt Count 207 213 (150-450) k/uL Comprehensive Metabolic Panel 08/08/17 08/09/17 Range/Units 17:55 05:28 Sodium 139 140 (137-145) mmol/L Potassium 3.6 3.9 (3.5-5.1) mmol/L Chloride 106 107 (98-107) mmol/L Carbon Dioxide 20 L 23 (22-30) mmol/L BUN 6 L 7 (7-17) mg/dL Creatinine 0.46 L 0.50 L (0.52-1.04) mg/dL Glucose 97 86 (74-99) mg/dL Calcium 9.0 8.6 (8.4-10.2) mg/dL AST 20 14 (14-36) U/L ALT 22 17 (9-52) U/L Alkaline Phosphatase 70 61 (38-126) U/L Total Protein 6.0 L 5.4 L (6.3-8.2) g/dL Albumin 3.6 3.0 L (3.5-5.0) g/dL Current Medications Generic Name Dose Route Start Last Admin Trade Name Freq PRN Reason Stop Dose Admin Acetaminophen 650 mg 08/08/17 19:16 Tylenol Tab PO Q6HR PRN Mild Pain or Fever > 100.5 Acetaminophen 650 mg 08/08/17 21:09 Tylenol Tab PO Q6HR PRN Mild Pain or Fever > 100.5 Sodium Chloride 1,000 mls @ 50 mls/hr 08/08/17 19:30 08/08/17 22:00 Saline 0.9% IV 50 mls/hr .Q20H [facility] Administration Multivi/Iron Carb/Fe Sulf/FA/Prenat 1 each 08/09/17 12:00 -U Capsule PO DAILY@1200 [facility] Naloxone HCl 0.2 mg 08/08/17 19:16 Narcan IV Q2M PRN Opioid Reversal Ondansetron HCl 4 mg 08/08/17 21:09 Zofran IVP Q8HR PRN Nausea And Vomiting Intake and Output 08/08/17 08/09/17 08/09/17 22:59 06:59 14:59 Intake Total 200 450 Balance 200 450 Intake: Intake, IV Titration 450 Amount Sodium Chloride 0.9% 1, 450 000 ml @ 50 mls/hr IV . Q20H [facility] Rx#:[id number] Oral 200 Other: Voiding Method Toilet Toilet # Voids 1 Weight 81.1 kg 81.1 kg 08/09/17 05:28 08/09/17 05:28 EKG Interpretations (text) EKG shows a normal sinus rhythm with T-wave inversion in the anterior leads and mild J-point elevation noted throughout. Assessment and Plan Plan: Assessment and plan #1 chest discomfort, atypical features for acute coronary syndrome. EKG shows normal sinus rhythm with T-wave inversion in the anterior leads, J-point elevation throughout. Troponins 0.05, 0.22, 0.24. Rule out possible viral myocarditis. #2 nicotine dependence #3 20 weeks . Plan Will obtain and review echocardiogram with Doppler study. We will also obtain a d-dimer, sed rate, and CRP stat. We'll also obtain a strep test and influenza A and B test. Further recommendations to follow. DNP note has been reviewed, I agree with a documented findings and plan of care. Patient was seen and examined.
--- NOTE | 2017-08-09 10:00 | ECHOF ---
Referral Reason:Chest Pain MEASUREMENTS -------- HEIGHT: 162.6 cm WEIGHT: 80.7 kg BP: RVIDd: 2.8 cm (< 3.3) IVSd: 0.9 cm (0.6 - 1.1) LVIDd: 4.7 cm (3.9 - 5.3) LVPWd: 0.7 cm (0.6 - 1.1) IVSs: 0.9 cm LVIDs: 3.6 cm LVPWs: 1.2 cm LA Diam: 2.9 cm (2.7 - 3.8) Ao Diam: 2.6 cm (2.0 - 3.7) AV Cusp: 1.8 cm (1.5 - 2.6) LA Diam: 3.4 cm (2.7 - 3.8) MV EXCURSION: 16.399 mm (> 18.000) MV EF SLOPE: 104 mm/s (70 - 150) EPSS: 0.7 cm MV E Bobby: 0.84 m/s MV DecT: 185 ms MV A Bobby: 0.78 m/s MV E/A Ratio: 1.08 RAP: 5.00 mmHg RVSP: 16.46 mmHg FINDINGS -------- Sinus rhythm. This was a technically good study. LV size, wall thickness and systolic function are normal, with an EF greater than 55%. The left sonny tricular size is normal. The right ventricle is normal in size. The left atrial size is normal. The right atrial size is normal. The aortic valve is trileaflet, and appears structurally normal. No aortic stenosis or regurgitation. The mitral valve leaflets are mildly thickened. There is trace mitral regurgitation. Mild tricuspid regurgitation present. There is no evidence of pulmonary hypertension. The right v entricular systolic pressure, as measured by Doppler, is 16.46mmHg. There is no pulmonic regurgitation present. The aortic root size is normal. There is no pericardial effusion. CONCLUSIONS -------- 1. LV size, wall thickness and systolic function are normal, with an EF greater than 55%. 2. The left ventricular size is normal. 3. The right ventricle is normal in size. 4. The left atrial size is normal. 5. The right atrial size is normal. 6. The aortic valve is trileaflet, and appears structurally normal. No aortic stenosis or regurgitati on. 7. The mitral valve leaflets are mildly thickened. 8. There is trace mitral regurgitation. 9. Mild tricuspid regurgitation present. 10. There is no evidence of pulmonary hypertension. 11. The right ventricular systolic pressure, as measured by Doppler, is 16.46mmHg. 12. There is no pulmonic regurgitation present. 13. The aortic root size is normal. 14. There is no pericardial effusion. CONDITIONING ROOM WORKER: Heike Thompson RDCS
[2017-08-09] MEDS: PRENATAL VIT-IRON-FOLIC ACID 1 EACH CAP PO SCH (14:35)
--- NOTE | 2017-08-09 15:27 | P.CNPUL ---
History of Present Illness Consult date: 08/09/17 Chief complaint: Chest pain History of present illness: A young 22-year-old female patient, essentially negative past medical history, 20 weeks , a chronic smoker, comes in for some pain in her jaw and her chest. Apparently she was in a good state of health. She woke up having some bilateral jaw pain and discomfort and subsequently started having heaviness in her chest worse with breathing. No cough. No sputum production. No fevers. No chills. No leg swelling. She remained hemodynamically stable. Pulse oxing 98% on room air. EKG showing some nonspecific ST segment changes and the rhythm was sinus. Troponins were 0.05, 0.25 and 0.24 respectively 3. Echocardiogram essentially within normal limits with a preserved LV function. Doppler of the lower extremities negative. D-dimer is low. No previous history of DVT or pulmonary embolism. No personal or family history of 80 to pulmonary embolism. No history of cardiomyopathy. No history of asthma. No reported aspiration. She is currently completely asymptomatic. The working diagnoses myocarditis, possibly viral nontender the patient started having some increased nasal congestion and drainage and stuffiness and sneezing approximately 2-3 days prior to her coming and to the hospital. She is currently afebrile. No significant leukocytosis. She does not take any medications. No 70 connected tissue disease. Review of Systems Constitutional: Denies chills, Denies fever Eyes: denies blurred vision, denies bulging eye, denies decreased vision Ears: deny: decreased hearing, ear discharge, earache, tinnitus Ears, nose, mouth and throat: Denies headache, Denies sore throat Cardiovascular: Reports chest pain Gastrointestinal: Denies abdominal pain, Denies diarrhea, Denies nausea, Denies vomiting Genitourinary: Denies dysuria, Denies hematuria Menstruation: Reports as per HPI Musculoskeletal: absent: ankle pain, ankle stiffness, ankle swelling Integumentary: Denies pruritus, Denies rash Neurological: Denies numbness, Denies weakness Psychiatric: Denies anxiety, Denies depression Endocrine: Denies fatigue, Denies weight change Hematologic/Lymphatic: Reports as per HPI Allergic/Immunologic: Reports as per HPI Past Medical History Past Medical History: No Reported History History of Any Multi-Drug Resistant Organisms: None Reported Past Surgical History: No Surgical Hx Reported Additional Past Surgical History / Comment(s): pt had ectopic approx dec 2016 and pt stated that she had "2 shots" to remove the tubal . Past Anesthesia/Blood Transfusion Reactions: No Reported Reaction Past Psychological History: ADD/ADHD Smoking Status: Former smoker Past Alcohol Use History: None Reported Past Drug Use History: None Reported - Past Family History Father Additional Family Medical History / Comment(s): pt stated that her father had MRSA Mother Additional Family Medical History / Comment(s): pt stated that her mother has no med hx Medications and Allergies Home Medications Medication Instructions Recorded Confirmed Type Pnv No.95/Ferrous Fum/Folic AC 1 tab PO DAILY 08/08/17 08/08/17 History [ Multivitamin Tablet] Allergies Allergy/AdvReac Type Severity Reaction Status Date / Time No Known Allergies Allergy Verified 08/08/17 17:32 Physical Exam Vitals: Vital Signs Temp Pulse Pulse Resp BP BP Pulse Ox 08/09/17 14:36 97.8 F 92 18 110/60 98 08/09/17 09:34 74 16 08/09/17 09:33 97.0 F L 74 18 105/58 97 08/09/17 04:00 97 F L 74 17 99/59 99 08/08/17 23:52 77 17 08/08/17 23:45 97 F L 77 17 118/59 99 08/08/17 21:00 81 18 08/08/17 20:28 98.2 F 08/08/17 20:22 81 18 118/56 99 08/08/17 19:59 97 F L 81 18 114/68 99 08/08/17 19:20 97.2 F L 77 18 112/58 97 08/08/17 19:07 83 18 119/56 98 08/08/17 18:47 18 08/08/17 16:57 98.5 F 89 18 122/76 98 Intake and Output 08/09/17 08/09/17 08/09/17 06:59 14:59 22:59 Intake Total 450 240 Balance 450 240 Intake: Intake, IV Titration 450 Amount Sodium Chloride 0.9% 1, 450 000 ml @ 50 mls/hr IV . Q20H [facility] Rx#:[id number] Oral 240 Other: Voiding Method Toilet Toilet # Voids 1 2 # Bowel Movements 0 Weight 81.1 kg Gen. appearance the patient is calm comfortable likely distress Head exam was generally normal. There was no scleral icterus or corneal arcus. Mucous membranes were moist. Neck was supple and without jugular venous distension, thyromegaly, or carotid bruits. Carotids were easily palpable bilaterally. There was no adenopathy. Lungs were clear to auscultation and percussion, and with normal diaphragmatic excursion. No wheezes or rales were noted. Cardiac exam revealed the PMI to be normally situated and sized. The rhythm was regular and no extrasystoles were noted during several minutes of auscultation. The first and second heart sounds were normal and physiologic splitting of the second heart sound was noted. There were no murmurs, rubs, clicks, or gallops. Abdominal exam revealed normal bowel sounds. The abdomen was soft, non-tender, and without masses, organomegaly, or appreciable enlargement of the abdominal aorta. Examination of the extremities revealed easily palpable radial, femoral and pedal pulses. There was no cyanosis, clubbing or edema. Examination of the skin revealed no evidence of significant rashes, suspicious appearing nevi or other concerning lesions. Neurologically awake and alert and there is no focal neurological deficit Results - Laboratory Findings CBC and BMP: 08/09/17 05:28 08/09/17 05:28 PT/INR, D-dimer PT 9.4 sec (9.0-12.0) 08/08/17 17:55 INR 0.9 (<1.2) 08/08/17 17:55 D-Dimer 0.92 mg/L FEU (<0.60) H 08/09/17 09:36 Abnormal lab findings: Abnormal Labs 08/08/17 08/08/17 08/08/17 17:55 17:55 17:55 RBC 3.48 L Hgb 10.9 L Hct 31.4 L ESR D-Dimer Carbon Dioxide 20 L BUN 6 L Creatinine 0.46 L Total Bilirubin Troponin I 0.059 H* C-Reactive Protein Total Protein 6.0 L Albumin Urine Appearance Urine Protein Urine Blood Ur Leukocyte Esterase Urine RBC Ur Squamous Epith Cells Urine Bacteria Urine Mucus 08/08/17 08/09/17 08/09/17 17:55 00:30 05:28 RBC Hgb Hct ESR D-Dimer Carbon Dioxide BUN Creatinine Total Bilirubin Troponin I 0.225 H* 0.243 H* C-Reactive Protein Total Protein Albumin Urine Appearance Cloudy H Urine Protein Trace H Urine Blood Small H Ur Leukocyte Esterase Small H Urine RBC 13 H Ur Squamous Epith Cells 9 H Urine Bacteria Few H Urine Mucus Occasional H 08/09/17 08/09/17 08/09/17 05:28 05:28 09:36 RBC 3.40 L Hgb 10.4 L Hct 30.9 L ESR D-Dimer 0.92 H Carbon Dioxide BUN Creatinine 0.50 L Total Bilirubin 0.1 L Troponin I C-Reactive Protein Total Protein 5.4 L Albumin 3.0 L Urine Appearance Urine Protein Urine Blood Ur Leukocyte Esterase Urine RBC Ur Squamous Epith Cells Urine Bacteria Urine Mucus 08/09/17 08/09/17 09:36 09:36 RBC Hgb Hct ESR 37 H D-Dimer Carbon Dioxide BUN Creatinine Total Bilirubin Troponin I C-Reactive Protein 48.4 H Total Protein Albumin Urine Appearance Urine Protein Urine Blood Ur Leukocyte Esterase Urine RBC Ur Squamous Epith Cells Urine Bacteria Urine Mucus Assessment and Plan Plan: Assessment 1 chest pain, under investigation. The workup has been negative. The patient' s been some jaw pain and addition to some limited rise in the troponins. Rule out underlying viral myocarditis. No other clear-cut explanation for the patient's symptoms. Vital myocarditis possible specially the patient was having symptoms of URI prior to coming into the hospital. The patient is currently hemodynamically stable. 2 smoker 3 at 3023 cups gestation 4 ADD/ADHD Plan Reviewed the records. No need for any further workup at this point at least from the pulmonary standpoint. Continue hydration. Cardiology evaluation. OB/ AVIATION NEUROPSYCHOLOGIST evaluation. Will follow.
--- NOTE | 2017-08-09 17:04 | P.PN ---
Subjective Progress Note Date: 08/09/17 Patient seen and examined in follow-up for chest pain and elevated troponins Today patient denies any ongoing chest pain or shortness of breath. Denies any fevers or chills. She still concerned about whether this is a heart attack in final diagnosis. Objective - Vital Signs Vital signs: Vital Signs Temp 97.8 F 08/09/17 14:36 Pulse 92 08/09/17 14:36 Resp 18 08/09/17 14:36 BP 110/60 08/09/17 14:36 Pulse Ox 98 08/09/17 14:36 Intake & Output 08/08/17 08/09/17 08/09/17 18:59 06:59 18:59 Intake Total 650 240 Balance 650 240 Weight 80.286 kg 81.1 kg Intake: Intake, IV Titration 450 Amount Sodium Chloride 0.9% 1, 450 000 ml @ 50 mls/hr IV . Q20H COUNT INCLUDES THE [facility] Rx#:[id number] Oral 200 240 Other: Voiding Method Toilet Toilet # Voids 1 2 # Bowel Movements 0 - Exam Constitutional: vital signs stable, Not in acute distress, pleasant, conversant Lungs: Clear to auscultation bilaterally, clear to percussion, normal respiratory effort Cardiovascular: Regular rate and rhythm, no murmurs, no gallops, no rubs, no peripheral edema Gastrointestinal: Soft, no tenderness to palpation, no palpable hepatosplenomegally, bowel sounds positive Extremities: No digital cyanosis or clubbing, peripheral pulses palpable and equal over bilateral radial arteries and dorsalis pedis artery, no calf muscle tenderness Psych: Alert, oriented to place, person and time, appropriate affect, intact judgment - Labs CBC & Chem 7: 08/09/17 05:28 08/09/17 05:28 Labs: Abnormal Lab Results - Last 24 Hours (Table) 08/08/17 08/08/17 08/08/17 Range/Units 17:55 17:55 17:55 RBC 3.48 L (3.80-5.40) m/uL Hgb 10.9 L (11.4-16.0) gm/dL Hct 31.4 L (34.0-46.0) % ESR (0-20) mm/hr D-Dimer (<0.60) mg/L FEU Carbon Dioxide 20 L (22-30) mmol/L BUN 6 L (7-17) mg/dL Creatinine 0.46 L (0.52-1.04) mg/dL Total Bilirubin (0.2-1.3) mg/dL Troponin I 0.059 H* (0.000-0.034) ng/mL C-Reactive Protein (<10.0) mg/L Total Protein 6.0 L (6.3-8.2) g/dL Albumin (3.5-5.0) g/dL Urine Appearance (Clear) Urine Protein (Negative) Urine Blood (Negative) Ur Leukocyte Esterase (Negative) Urine RBC (0-5) /hpf Ur Squamous Epith Cells (0-4) /hpf Urine Bacteria (None) /hpf Urine Mucus (None) /hpf 08/08/17 08/09/17 08/09/17 Range/Units 17:55 00:30 05:28 RBC (3.80-5.40) m/uL Hgb (11.4-16.0) gm/dL Hct (34.0-46.0) % ESR (0-20) mm/hr D-Dimer (<0.60) mg/L FEU Carbon Dioxide (22-30) mmol/L BUN (7-17) mg/dL Creatinine (0.52-1.04) mg/dL Total Bilirubin (0.2-1.3) mg/dL Troponin I 0.225 H* 0.243 H* (0.000-0.034) ng/mL C-Reactive Protein (<10.0) mg/L Total Protein (6.3-8.2) g/dL Albumin (3.5-5.0) g/dL Urine Appearance Cloudy H (Clear) Urine Protein Trace H (Negative) Urine Blood Small H (Negative) Ur Leukocyte Esterase Small H (Negative) Urine RBC 13 H (0-5) /hpf Ur Squamous Epith Cells 9 H (0-4) /hpf Urine Bacteria Few H (None) /hpf Urine Mucus Occasional H (None) /hpf 08/09/17 08/09/17 08/09/17 Range/Units 05:28 05:28 09:36 RBC 3.40 L (3.80-5.40) m/uL Hgb 10.4 L (11.4-16.0) gm/dL Hct 30.9 L (34.0-46.0) % ESR (0-20) mm/hr D-Dimer 0.92 H (<0.60) mg/L FEU Carbon Dioxide (22-30) mmol/L BUN (7-17) mg/dL Creatinine 0.50 L (0.52-1.04) mg/dL Total Bilirubin 0.1 L (0.2-1.3) mg/dL Troponin I (0.000-0.034) ng/mL C-Reactive Protein (<10.0) mg/L Total Protein 5.4 L (6.3-8.2) g/dL Albumin 3.0 L (3.5-5.0) g/dL Urine Appearance (Clear) Urine Protein (Negative) Urine Blood (Negative) Ur Leukocyte Esterase (Negative) Urine RBC (0-5) /hpf Ur Squamous Epith Cells (0-4) /hpf Urine Bacteria (None) /hpf Urine Mucus (None) /hpf 08/09/17 08/09/17 Range/Units 09:36 09:36 RBC (3.80-5.40) m/uL Hgb (11.4-16.0) gm/dL Hct (34.0-46.0) % ESR 37 H (0-20) mm/hr D-Dimer (<0.60) mg/L FEU Carbon Dioxide (22-30) mmol/L BUN (7-17) mg/dL Creatinine (0.52-1.04) mg/dL Total Bilirubin (0.2-1.3) mg/dL Troponin I (0.000-0.034) ng/mL C-Reactive Protein 48.4 H (<10.0) mg/L Total Protein (6.3-8.2) g/dL Albumin (3.5-5.0) g/dL Urine Appearance (Clear) Urine Protein (Negative) Urine Blood (Negative) Ur Leukocyte Esterase (Negative) Urine RBC (0-5) /hpf Ur Squamous Epith Cells (0-4) /hpf Urine Bacteria (None) /hpf Urine Mucus (None) /hpf Microbiology - Last 24 Hours (Table) 08/09/17 09:42 Group A Strep Throat Culture - Preliminary Throat 08/08/17 17:55 Urine Culture - Preliminary Urine,Voided Assessment and Plan Assessment: 22-year-old female 20 weeks , presented hospital sudden onset chest pain radiating to the neck. Admitted to rule out ACS. This pain has atypical features and was not associated with any exertion. Further testing revealed elevated troponins and nonspecific T-wave changes on the EKG. ESR and CRP elevated. She is giving a questionable history of viral upper respiratory initially she reported upon initial interview is however upon my follow-up she denied any history of symptoms suggestive of upper respiratory infection. 2-D echocardiogram showed preserved left ventricular ejection fraction. Cardiology is considering possible diagnosis of viral myocarditis. Currently patient under supportive and conservative therapy Plan: #Possible viral myocarditis, without heart failure symptoms Supportive care Cardiac monitoring Elevated ESR and CRP and troponins 2-D echocardiogram showed preserved left ventricle ejection fraction Cardiology following Currently patient is chest pain-free and denies any shortness of breath #20 weeks OB following Continue with vitamins #Gestational anemia Consider starting iron supplementation third trimester #DVT prophylaxis Mechanical, encourage ambulation Cardiology recommending monitoring overnight for any symptoms of heart failure or recurrent chest pain.
[2017-08-09] MEDS: SODIUM CHLORIDE 0.9% 1,000 ML IV SCH (20:50)
[2017-08-10 03:39] VITALS: PULSE 72
[2017-08-10] MEDS: PRENATAL VIT-IRON-FOLIC ACID 1 EACH CAP PO SCH (11:43)
--- NOTE | 2017-08-10 14:16 | P.PN ---
Subjective Progress Note Date: 08/10/17 A young 22-year-old female patient, essentially negative past medical history, 20 weeks , a chronic smoker, comes in for some pain in her jaw and her chest. Apparently she was in a good state of health. She woke up having some bilateral jaw pain and discomfort and subsequently started having heaviness in her chest worse with breathing. No cough. No sputum production. No fevers. No chills. No leg swelling. She remained hemodynamically stable. Pulse oxing 98% on room air. EKG showing some nonspecific ST segment changes and the rhythm was sinus. Troponins were 0.05, 0.25 and 0.24 respectively 3. Echocardiogram essentially within normal limits with a preserved LV function. Doppler of the lower extremities negative. D-dimer is low. No previous history of DVT or pulmonary embolism. No personal or family history of 80 to pulmonary embolism. No history of cardiomyopathy. No history of asthma. No reported aspiration. She is currently completely asymptomatic. The working diagnoses myocarditis, possibly viral nontender the patient started having some increased nasal congestion and drainage and stuffiness and sneezing approximately 2-3 days prior to her coming and to the hospital. She is currently afebrile. No significant leukocytosis. She does not take any medications. No 70 connected tissue disease. On subsequent evaluation of 08/10/2017 a minute patient has no specific complaints. No chest pain. No jaw pain. No neck pain. No back pain. No arm pain. No shortness of breath. No hypoxemia. She is tolerating her diet. No fever or chills. No night sweats. The nasal congestion and stuffiness also improving. Influenza screen was negative. EBV titers came back negative. Strep rapid screen was also negative. Objective - Vital Signs Vital signs: Vital Signs Temp 97 F L 08/10/17 03:38 Pulse 72 08/10/17 03:40 Resp 17 08/10/17 03:40 BP 98/52 08/10/17 03:38 Pulse Ox 98 08/10/17 03:38 Intake & Output 08/09/17 08/10/17 08/10/17 18:59 06:59 18:59 Intake Total 240 200 240 Balance 240 200 240 Weight 81.1 kg Intake: Oral 240 200 240 Other: Voiding Method Toilet Toilet # Voids 2 1 1 # Bowel Movements 0 0 0 - Exam Gen. appearance the patient is calm comfortable likely distress Head exam was generally normal. There was no scleral icterus or corneal arcus. Mucous membranes were moist. Neck was supple and without jugular venous distension, thyromegaly, or carotid bruits. Carotids were easily palpable bilaterally. There was no adenopathy. Lungs were clear to auscultation and percussion, and with normal diaphragmatic excursion. No wheezes or rales were noted. Cardiac exam revealed the PMI to be normally situated and sized. The rhythm was regular and no extrasystoles were noted during several minutes of auscultation. The first and second heart sounds were normal and physiologic splitting of the second heart sound was noted. There were no murmurs, rubs, clicks, or gallops. Abdominal exam revealed normal bowel sounds. The abdomen was soft, non-tender, and without masses, organomegaly, or appreciable enlargement of the abdominal aorta. Examination of the extremities revealed easily palpable radial, femoral and pedal pulses. There was no cyanosis, clubbing or edema. Examination of the skin revealed no evidence of significant rashes, suspicious appearing nevi or other concerning lesions. Neurologically awake and alert and there is no focal neurological deficit - Labs CBC & Chem 7: 08/09/17 05:28 08/09/17 05:28 Labs: Microbiology - Last 24 Hours (Table) 08/08/17 17:55 Urine Culture - Final Urine,Voided 08/09/17 09:42 Group A Strep Throat Culture - Preliminary Throat Assessment and Plan Plan: Assessment 1 chest pain, under investigation. The workup has been negative. The patient' s been some jaw pain and addition to some limited rise in the troponins. Rule out underlying viral myocarditis. No other clear-cut explanation for the patient's symptoms. Vital myocarditis possible specially the patient was having symptoms of URI prior to coming into the hospital. The patient is currently hemodynamically stable. Upon subsequent evaluation of 08/10/2017, the patient immediately symptomatically and there has been no other significant events over the past 24 hours. 2 smoker 3 at 3023 cups gestation 4 ADD/ADHD Plan No active pulmonary issues. Discharge as per medicine.
--- NOTE | 2017-08-10 17:02 | P.DS ---
Providers Date of admission: 08/08/17 19:22 Expected date of discharge: 08/10/17 Attending physician: Juana Seaman MD Consults: 08/08/17 19:16 Consult Physician Stat Consulting Provider: Aryan Frederick Consult Reason/Comments: 20 weeks ; Chest pain Do you want consulting provider notified?: Already Contacted Consult Physician Stat Consulting Provider: John Farris Consult Reason/Comments: Chest Pain; Concern for Tiffanie/Myocarditis Do you want consulting provider notified?: Already Contacted 08/09/17 07:12 Consult Physician Routine Consulting Provider: Parker Quinones Consult Reason/Comments: sob Do you want consulting provider notified?: Yes Primary care physician: Stated None Hospital Course: 22 year old female who is was admitted to the hospital with chest pain. Pain was pleuritic in nature, worse with breathing, substernal, radiates to the back and also left shoulder and jaw areas. She was also having shortness of breath with the pain. The sob has been going for the last several weeks, no major change. It's mainly when she was lying flat. Patient denied having any fevers, chills, abdominal pain, diarrhea. No previous history of DVT or pulmonary embolism. No personal or family history of 80 to pulmonary embolism. No history of cardiomyopathy. No history of asthma. In the emergency department she underwent extensive evaluation, EKG showed some nonspecific ST segment changes and the rhythm was sinus. She was subsequently admitted to the hospital. Troponins were 0.05, 0.25 and 0.24 respectively 3. She had Echocardiogram which was essentially within normal limits with a preserved LV function. Doppler of the lower extremities negative. D-dimer slightly positive but the pulmonary business travel consultant did not feel that she needed further workup to rule out PE. She also had negatives strep throat, negative influenza A and B screen, negative heterophile test. ESR was elevated at 37 and C-reactive protein was also elevated at 43. The working diagnosis was myocarditis. Since the pain was resolved since she came in she was not treated with NSAIDs especially that she is . She was seen in consultation with cardiology and IT SUPPORT MANAGER service and both concurred with the management. She will be discharged home in stable condition today after she was cleared by all of the above business travel consultant services. Patient Condition at Discharge: Serious Plan - Discharge Summary Discharge Rx Participant: No New Discharge Prescriptions: New RX: Acetaminophen Tab [Tylenol] 650 mg PO Q6HR PRN tab PRN Reason: Mild Pain Or Fever > 100.5 Continue RX: Pnv No.95/Ferrous Fum/Folic AC [ Multivitamin Tablet] 1 tab PO DAILY Discharge Medication List RX: Pnv No.95/Ferrous Fum/Folic AC [ Multivitamin Tablet] 1 tab PO DAILY 08/08/17 [History] RX: Acetaminophen Tab [Tylenol] 650 mg PO Q6HR PRN tab 08/10/17 [Rx] Follow up Appointment(s)/Referral(s): Aryan Frederick DO [Doctor of Osteopathic Medicine] - 08/21/17 9:00 am Tod Kay MD [REFERRING] - 08/16/17 11:20 am Amrit Mercedes MD [STAFF PHYSICIAN] - 08/28/17 4:15 pm (Sunday. ) Patient Instructions/Handouts: Upper Respiratory Infection (DC), Myocarditis ( DC)
[2017-08-10 17:16] VITALS: BP 106/47; TEMP 97.4
[2017-08-10 17:21] VITALS: RESP 14
== END 2017-08-10 17:35 | disposition home or self-care (01) ==
LOC: EC 16:53 → INTOOBSV 19:22 → 6SEL 19:22
PROVIDERS: ADMIT Internal Medicine; ATTEND Internal Medicine
DX: O26.892 Other specified pregnancy related conditions, second trimester (principal); Z3A.20 20 weeks gestation of pregnancy; R07.89 Other chest pain; R06.02 Shortness of breath; R68.84 Jaw pain; R06.00 Dyspnea, unspecified; R07.2 Precordial pain; M25.512 Pain in left shoulder; R79.82 Elevated C-reactive protein (CRP); R79.89 Other specified abnormal findings of blood chemistry; R70.0 Elevated erythrocyte sedimentation rate; R94.31 Abnormal electrocardiogram [ECG] [EKG]; R74.8 Abnormal levels of other serum enzymes; O99.012 Anemia complicating pregnancy, second trimester; R77.8 Other specified abnormalities of plasma proteins; M79.89 Other specified soft tissue disorders; Z87.891 Personal history of nicotine dependence; O99.343 Other mental disorders complicating pregnancy, third trimester; F90.9 Attention-deficit hyperactivity disorder, unspecified type
CPT/HCPCS: 99285; 96360; 96361 ×2; 36415; 93005; 93306; 85379; 80053 ×2; 85652; 82550 ×2; 82553 ×2; 84484 ×2; 85025 ×2; 85610; 85730; 86140; 86308; 81001; 87086; 87081; 87430; 87502; 93970; G0378 ×3; S0197 ×2

== ENCOUNTER → 2017-09-17 | Outpatient (CLI) | payer BC, OTHER | END | disposition home or self-care (01) | LOC: LABWHC1 10:19 | PROVIDERS: ATTEND Internal Medicine Cardiovascular Disease | DX: I51.4 Myocarditis, unspecified (principal) | CPT/HCPCS: 36415; 85652; 86140 ==

== ENCOUNTER 2017-12-17 09:41 | Outpatient (CLI) | payer BC, OTHER ==
[2017-12-17 10:35] VITALS: BP 140/73; PULSE 78; RESP 18; TEMP 96.6
--- NOTE | 2017-12-27 07:22 | P.MSEPDOC ---
Presenting Problems - Arrival Data Date of Arrival on Unit: 12/17/17 Time of Arrival on Unit: 09:41 Mode of Transport: Ambulatory - Complaint OB-Reason for Admission/Chief Complaint: Rule Out SROM Comment: possible SROM last night 2100, clear fluid Medical History - Information : 2 Para: 0 Term: 0 : 0 Abortions: Spontaneous or Elective: 0 Number of Living Children: 0 - Gestational Age Gestational Age by ESPERANZA (wks/days): 38 Weeks and 3 Days - History Complications: GDM Review of Systems - Review of Systems Constitutional: No problems Breast: No problems ENT: No problems Cardiovascular: No problems Respiratory: No problems Gastrointestinal: No problems Genitourinary: No problems Musculoskeletal: No problems Neurological: No problems Skin: No problems Vital Signs - Temperature Temperature: 96.6 F Temperature Source: Temporal Artery Scan - Pulse Pulse Oximetery Pulse Rate: 78 Pulse Assessment Method: Pulse Oximetry - Respirations Respiratory Rate: 18 Oxygen Delivery Method: Room Air - Blood Pressure Right Arm Blood Pressure: 140/73 Blood Pressure Mean: 95 Blood Pressure Source: Automatic Cuff - Comment Vital Signs Comment: 131/64 repeat BP Medical Screen Scoring (Pre) - Cervical Exam Dilation: 1-3 cm = 1 Effacement: More than 50% = 2 Membranes: Intact - Uterine Contractions Frequency: > or = 36 weeks =2 Duration: > 40 seconds = 2 Intensity: N/A - Maternal Vital Signs Maternal Temperature: N/A Maternal Blood Pressure: N/A Signs of Preeclampsia: N/A Maternal Respirations: N/A - Pain Assessment Pain Scale Used: Numeric (1 - 10) Pain Intensity: 0 - Maternal Trauma Maternal Trauma: N/A - Assessment Baseline FHR: 125 Heart Rate - NICHD Category: Category I (Normal) = 0 NST: Reactive Position: N/A Station: N/A - Total Score Total Score (Pre): 7 - Level of Risk Level of Risk: Medium (6-9) Physician Notification (Pre) - Physician Notified Physician Notified Date: 12/17/17 Physician Notified Time: 10:14 Physician/Practitioner Notifed:: Dr Martinez Spoke With: telephone New Order Received: Yes (discharge) - Notification Comment Comment: Pt here for possible SROM, having contractions as well but not feeling them. Pt amnisure negative, cervix .5 cm more dilated than when checked last week. no leaking noted, moderate amount of mucous found during cervical exam. Disposition - Disposition OB Disposition: Discharge to home Discharge Date: 12/17/17 Discharge Time: 10:25 I agree with the RN Medical Screening Exam: Yes Risk & Benefit of care provided described in d/c instruction: Yes Diagnosis: FALSE LABOR BEFORE 37 COMPLETED WEEKS OF GEST, THIRD TRI
== END 2017-12-17 10:25 | disposition home or self-care (01) ==
LOC: FBPOP 09:41
PROVIDERS: ATTEND Obstetrics & Gynecology
DX: O47.1 False labor at or after 37 completed weeks of gestation (principal); Z3A.38 38 weeks gestation of pregnancy
CPT/HCPCS: 59025; 84112; 99213

== ENCOUNTER 2017-12-18 06:05 | Inpatient (IN) | payer BC, OTHER ==
[2017-12-18] MEDS ORDERED: OXYTOCIN 10 UNIT/ML 1 ML VIAL IM PRN (06:18)
[2017-12-18] MEDS ORDERED: TERBUTALINE 1 MG/ML VIAL SQ PRN (06:18)
[2017-12-18] MEDS ORDERED: CARBOPROST TROMETHAMINE 250 MCG/ML 1 ML AMP IM PRN (06:18)
[2017-12-18] MEDS ORDERED: METHYLERGONOVINE 0.2 MG/ML 1 ML AMP IM PRN (06:18)
[2017-12-18] MEDS ORDERED: LIDOCAINE 0.5% (PF) 5 MG/ML (50 ML SDV) SQ PRN (06:18)
[2017-12-18] MEDS ORDERED: AMPICILLIN 2,000 MG in SODIUM CHLORIDE 0.9% 100 ML IVPB STA (06:21)
[2017-12-18] MEDS ORDERED: LACTATED RINGERS 1,000 ML IV SCH (06:30)
[2017-12-18 06:36] VITALS: BMI 35.3
[2017-12-18 06:44] LABS: Glucose,Whole Blood 90 mg/dL (75-99)
[2017-12-18 06:58] LABS: Basophils % (A) 0 %; Eosinophils # (A) 0.1 k/uL (0-0.7); Eosinophils % (A) 1 %; HCT 38.5 % (34.0-46.0); HGB 12.4 gm/dL (11.4-16.0); Lymphocytes # (A) 1.7 k/uL (1.0-4.8); Lymphocytes % (A) 15 %; MCH 29.4 pg (25.0-35.0); MCHC 32.2 g/dL (31.0-37.0); MCV 91.5 fL (80.0-100.0); Mean Platelet Volume 7.5; Monocytes # (A) 0.6 k/uL (0-1.0); Monocytes % (A) 5 %; Neutrophils % (A) 78 %; Platelet Count 223 k/uL (150-450); RBC 4.21 m/uL (3.80-5.40); RDW 14.6 % (11.5-15.5); WBC 11.6 k/uL (3.8-10.6)
--- NOTE | 2017-12-18 07:20 | P.HPOB ---
History of Present Illness H&P Date: 12/18/17 Chief Complaint: Labor 22 year old presents in labor. Her cervix is 6/100/-1. Contractions every 2 minutes. heart tones 120-125 with moderate variability and reactive. Review of Systems All systems: negative Constitutional: Denies chills, Denies fever Eyes: denies blurred vision, denies pain Ears, nose, mouth and throat: Denies headache, Denies sore throat Cardiovascular: Denies chest pain, Denies shortness of breath Respiratory: Denies cough Gastrointestinal: Denies abdominal pain, Denies diarrhea, Denies nausea, Denies vomiting Genitourinary: Denies dysuria, Denies hematuria Musculoskeletal: Denies myalgias Integumentary: Denies pruritus, Denies rash Neurological: Denies numbness, Denies weakness Psychiatric: Denies anxiety, Denies depression Endocrine: Denies fatigue, Denies weight change Past Medical History Past Medical History: No Reported History Additional Past Medical History / Comment(s): Obstetrical history: First was an ectopic. This is her second . She's had care with Dr. Nieves since 9 weeks. Blood type B+, antibodies negative, HIV nonreactive, rubella immune, RPR nonreactive, hepatitis B negative, GBS negative , normal anatomy ultrasound, she is gestational diabetes, A2 controlled with diet and metformin. History of Any Multi-Drug Resistant Organisms: None Reported Past Surgical History: No Surgical Hx Reported Additional Past Surgical History / Comment(s): pt had ectopic approx dec 2016 and patient was treated with methotrexate Past Anesthesia/Blood Transfusion Reactions: No Reported Reaction Past Psychological History: ADD/ADHD Smoking Status: Never smoker Past Alcohol Use History: None Reported Past Drug Use History: None Reported - Past Family History Father Additional Family Medical History / Comment(s): pt stated that her father had MRSA Mother Family Medical History: Unable to Obtain Additional Family Medical History / Comment(s): pt stated that her mother has no med hx Medications and Allergies Home Medications Medication Instructions Recorded Confirmed Type Pnv No.95/Ferrous Fum/Folic AC 1 tab PO DAILY 08/08/17 12/18/17 History [ Multivitamin Tablet] metFORMIN HCL [Glucophage] 500 mg PO BID 12/18/17 12/18/17 History Allergies Allergy/AdvReac Type Severity Reaction Status Date / Time No Known Allergies Allergy Verified 12/18/17 06:18 Exam Osteopathic Statement: *. No significant issues noted on an osteopathic structural exam other than those noted in the History and Physical/Consult. Vital Signs Temp Pulse Resp BP Pulse Ox 12/18/17 06:27 96.4 F L 78 18 141/88 98 Intake and Output 12/17/17 12/18/17 12/18/17 22:59 06:59 14:59 Other: Weight 93.44 kg Heart: Regular rate and rhythm Lungs: Clear to auscultation bilaterally Abdomen: Soft, nontender Extremities: Negative Homans sign Results Result Diagrams: 12/18/17 06:49 Abnormal Lab Results - Last 24 Hours (Table) 12/18/17 Range/Units 06:49 WBC 11.6 H (3.8-10.6) k/uL Neutrophils # 9.0 H (1.3-7.7) k/uL Assessment and Plan (1) Normal labor Current Visit: Yes Status: Acute Code(s): O80 - ENCOUNTER FOR FULL-TERM UNCOMPLICATED DELIVERY; Z37.9 - OUTCOME OF DELIVERY, UNSPECIFIED SNOMED Code(s ): 56768188 (2) Gestational diabetes mellitus, class A2 Current Visit: Yes Status: Acute Code(s): O24.419 - GESTATIONAL DIABETES MELLITUS IN , UNSP CONTROL SNOMED Code(s): 84395417 Plan: 1. Admit to family place 2. Epidural for pain control 3. Blood sugars every hours until delivery, first one is 90 4. Anticipate normal vaginal delivery
[2017-12-18] MEDS ORDERED: LANOLIN CREAM 5 GM TUBE TOPICAL PRN (09:57)
[2017-12-18] MEDS ORDERED: diphenhydrAMINE 50 MG CAP PO PRN (09:57)
[2017-12-18] MEDS ORDERED: ZOLPIDEM 5 MG TAB PO PRN (09:57)
[2017-12-18] MEDS ORDERED: WITCH HAZEL 1 EACH MED..PAD TOPICAL PRN (09:57)
[2017-12-18] MEDS ORDERED: SIMETHICONE 80 MG CHEWABLE PO PRN (09:57)
[2017-12-18] MEDS ORDERED: diphenhydrAMINE 25 MG CAP PO PRN (09:57)
[2017-12-18] MEDS ORDERED: BENZOCAINE/MENTHOL SPRAY 1 GM/SPRAY AEROSOL TOPICAL PRN (09:57)
[2017-12-18] MEDS ORDERED: HYDROCORTISONE 2.5% RECTAL CREAM 30 GM TUBE RECTAL PRN (09:57)
[2017-12-18] MEDS: IBUPROFEN 600 MG TAB PO PRN ×2 (10:23→21:52)
[2017-12-18] MEDS ORDERED: AMPICILLIN 1,000 MG in SODIUM CHLORIDE 0.9% 50 ML IVPB SCH (11:00)
--- NOTE | 2017-12-18 11:11 | P.PROBDLV ---
Vaginal Delivery Note - . Vaginal Delivery Note: Patient progressed complete and pushing with spontaneous vaginal delivery of a viable female over an intact perineum. Falling deliver the head anterior posterior shoulders were delivered with ease with gentle downward upper traction. Baby was delivered essentially from straight OA position. Once baby was delivered mouth nares were bulb suctioned and baby was placed on mother's abdomen where the umbilical cord was allowed to pulsate for 30 seconds prior to clamping and cutting. Once this was accomplished nursery personnel was present to assume care. Placenta was then delivered intact and Pitocin was added to the IV. Baby and mother are both stable following delivery.
[2017-12-18] MEDS: ACETAMINOPHEN TAB 325 MG TAB PO PRN (13:47)
[2017-12-18] MEDS ORDERED: CALCIUM CARBONATE 500 MG CHEWABLE PO PRN (16:10)
[2017-12-19] MEDS: ACETAMINOPHEN TAB 325 MG TAB PO PRN ×2 (02:16→07:34)
[2017-12-19] MEDS: SENNOSIDES-DOCUSATE SODIUM 1 EACH TAB PO SCH ×2 (02:17→09:17)
[2017-12-19] MEDS: IBUPROFEN 600 MG TAB PO PRN (04:35)
[2017-12-19 07:46] VITALS: BP 136/84; PULSE 83; RESP 14; TEMP 97.3
--- NOTE | 2017-12-19 09:09 | P.DS ---
Providers Date of admission: 12/18/17 06:17 Expected date of discharge: 12/19/17 Attending physician: Aryan Frederick Primary care physician: Stated None Hospital Course: Patient is doing very well day 1. She is requesting discharge home. Vital signs are stable and afebrile. Heart regular, lungs clear, extremities are without pain. Abdomen soft uterus is firm and lochia is reported to be light. All questions are answered for her and discharge instructions reviewed. A prescription for Motrin motion was provided and she will follow up with me in 6 weeks. She is stable for discharge this time. Patient Condition at Discharge: Good Plan - Discharge Summary New Discharge Prescriptions: New Ibuprofen [Motrin] 600 mg PO Q6HR PRN #30 tab PRN Reason: Pain No Action Pnv No.95/Ferrous Fum/Folic AC [ Multivitamin Tablet] 1 tab PO DAILY metFORMIN HCL [Glucophage] 500 mg PO BID Discharge Medication List Pnv No.95/Ferrous Fum/Folic AC [ Multivitamin Tablet] 1 tab PO DAILY 12/18 [History] metFORMIN HCL [Glucophage] 500 mg PO BID 12/18/17 [History] Ibuprofen [Motrin] 600 mg PO Q6HR PRN #30 tab 12/19/17 [Rx] Follow up Appointment(s)/Referral(s): Aryan Frederick DO [Doctor of Osteopathic Medicine] - 6 Weeks Activity/Diet/Wound Care/Special Instructions: No heavy lifting, limit stairs and driving, and pelvic rest. If any high temperatures, heavy bleeding, or severe pain call the office Discharge Disposition: HOME SELF-CARE
[2017-12-19 16:11] LABS: Hemoglobin A1C 5.6 % (4.0-6.0)
== END 2017-12-19 15:59 | disposition home or self-care (01) | DRG 775 ==
LOC: FBPOP 06:05 → 4FBP 06:17
PROVIDERS: ADMIT Obstetrics & Gynecology; ATTEND Obstetrics & Gynecology
PROC: 10E0XZZ Delivery of Products of Conception, External Approach (ICD-10-PCS; principal; 2017-12-18)
PROC: 3E0R3NZ Introduction of Analgesics, Hypnotics, Sedatives into Spinal Canal, Percutaneous Approach (ICD-10-PCS; principal; 2017-12-18)
PROC: 00HU33Z Insertion of Infusion Device into Spinal Canal, Percutaneous Approach (ICD-10-PCS; principal; 2017-12-18)
DX: O24.425 Gestational diabetes mellitus in childbirth, controlled by oral hypoglycemic drugs (principal); Z37.0 Single live birth; Z79.84 Long term (current) use of oral hypoglycemic drugs; Z3A.38 38 weeks gestation of pregnancy
CPT/HCPCS: 83036; 85025

== ENCOUNTER 2019-04-24 12:39 | Emergency (ER) | payer BC, OTHER ==
[2019-04-24 14:37] LABS: Basophils # (A) 0.1 k/uL (0-0.2); Basophils % (A) 1 %; Eosinophils # (A) 0.3 k/uL (0-0.7); Eosinophils % (A) 2 %; HCT 37.8 % (34.0-46.0); Lymphocytes # (A) 1.6 k/uL (1.0-4.8); Lymphocytes % (A) 15 %; MCH 31.7 pg (25.0-35.0); MCHC 34.3 g/dL (31.0-37.0); MCV 92.4 fL (80.0-100.0); Mean Platelet Volume 7.9; Monocytes # (A) 0.3 k/uL (0-1.0); Monocytes % (A) 3 %; Neutrophils # (A) 8.4 k/uL (1.3-7.7); Neutrophils % (A) 78 %; Platelet Count 232 k/uL (150-450); RDW 12.9 % (11.5-15.5); WBC 10.8 k/uL (3.8-10.6)
[2019-04-24 14:42] LABS: ALT 12 U/L (4-34); AST 19 U/L (14-36); African American GFR (CKD) >90 (>60 ml/min/1.73 sqM); Alkaline Phosphatase 73 U/L (38-126); Anion Gap 9 mmol/L; Blood Urea Nitrogen 10 mg/dL (7-17); Calcium 9.3 mg/dL (8.4-10.2); Carbon Dioxide 23 mmol/L (22-30); Chloride 106 mmol/L (98-107); Glucose 111 mg/dL (74-99); Non-African American GFR(CKD) >90 (>60 ml/min/1.73 sqM); Potassium 3.8 mmol/L (3.5-5.1); Sodium 138 mmol/L (137-145); Total Bilirubin 0.4 mg/dL (0.2-1.3); Total Protein 6.5 g/dL (6.3-8.2)
[2019-04-24 14:46] LABS: Appearance,Urine Clear (Clear); Bilirubin,Urine Negative (Negative); Blood,Urine Negative (Negative); Color,Urine Yellow; Glucose,Urine (UA) Negative (Negative); Ketones,Urine Negative (Negative); Leukocyte Esterase,Urine Negative (Negative); Nitrite,Urine Negative (Negative); Protein,Urine Negative (Negative); Specific Gravity,Urine 1.022 (1.001-1.035); Urobilinogen,Urine <2.0 mg/dL (<2.0)
[2019-04-24 15:45] LABS: HCG,Quantitative Serum 88843.1 mIU/mL
--- NOTE | 2019-04-24 16:00 | US ---
EXAMINATION TYPE: Transabdominal DATE OF EXAM: 04/24/2019 3:32 PM COMPARISON: NONE CLINICAL HISTORY: pain. spotting, pelvic pain EXAM PERFORMED: Transabdominal (TA) EXAM MEASUREMENTS: GESTATIONAL AGE / DATING Physician Established: Not yet established Dates by LMP: (8 weeks/0 days) EDC: 12/04/19 Dates by First Scan: No previous this is first scan Dates by Current Scan for: (8 weeks/3 days) EDC: 12/01/19 MATERNAL ANATOMY Uterus: 10.6 x 6.8 x 7.3cm Right Ovary: 2.6 x 1.4 x 1.9cm Left Ovary: 2.9 x 2.5 x 2.6cm Post CDS / Adnexa: appears wnl Presence of free fluid: no Presence of corpus luteal cyst: yes, complex area left ovary = 2.0 x 2.2 x 2.1cm GESTATION / SURVEY CRL: 1.9cm (8 weeks/3 days) Yolk Sac (normal less than 6mm): 0.4cm Heart Rate: 161 bpm Rhythm: Normal IUP: Viable IUP Date of LMP: 02/27/19 single viable IUP 8wks/3days with ESPERANZA 12/01/19. probable corpus luteum left ovary IMPRESSION: Single viable intrauterine corresponding to ultrasound age 8 weeks 3 days with estimated da te of delivery 12/01/2019 by today's exam
--- NOTE | 2019-04-24 16:42 | ED ---
Female Urogenital HPI - General Chief complaint: Vaginal Bleeding Stated complaint: 8wks preg, bleeding Time Seen by Provider: 04/24/19 14:08 Source: patient Mode of arrival: ambulatory Limitations: no limitations - History of Present Illness Initial comments: A1 currently 8 weeks , history of ectopic , LMP 02/27/19 present including for dark brown blood occasional pelvic pain times one day. Patient states she had 2 bouts of few seconds of sharp pelvic pain otherwise she denies any consistent pain or unilateral pain patient states that she has had dark brown blood or discharge she is unsure how to describe it. Patient does have history of chlamydia with last . Patient is concerned fasciitis time denies any discharge prior to the onset of today. Patient is concerned she is miscarrying presents to the ER for evaluation. Patient denies any dizziness dysuria or urgency frequency hematuria back pain. Upon arrival she appears well-nourished signs of acute distress L signs within except for limits - Related Data Home Medications Medication Instructions Recorded Confirmed Pnv No.95/Ferrous Fum/Folic AC 1 tab PO DAILY 08/08/17 12/18/17 [ Multivitamin Tablet] metFORMIN HCL [Glucophage] 500 mg PO BID 12/18/17 12/18/17 Previous Rx's Medication Instructions Recorded Ibuprofen [Motrin] 600 mg PO Q6HR PRN #30 tab 12/19/17 Allergies Allergy/AdvReac Type Severity Reaction Status Date / Time No Known Allergies Allergy Verified 12/18/17 06:18 Review of Systems ROS Statement: Those systems with pertinent positive or pertinent negative responses have been documented in the HPI. ROS Other: All systems not noted in ROS Statement are negative. Past Medical History Past Medical History: No Reported History Additional Past Medical History / Comment(s): Obstetrical history: First was an ectopic. This is her second . She's had care with Dr. Nieves since 9 weeks. Blood type B+, antibodies negative, HIV nonreactive, rubella immune, RPR nonreactive, hepatitis B negative, GBS negative, normal anatomy ultrasound, she is gestational diabetes, A2 controlled with diet and metformin. History of Any Multi-Drug Resistant Organisms: None Reported Past Surgical History: No Surgical Hx Reported Additional Past Surgical History / Comment(s): pt had ectopic approx dec 2016 and patient was treated with methotrexate Past Anesthesia/Blood Transfusion Reactions: No Reported Reaction Past Psychological History: ADD/ADHD Smoking Status: Never smoker Past Alcohol Use History: None Reported Past Drug Use History: None Reported - Past Family History Father Additional Family Medical History / Comment(s): pt stated that her father had MRSA Mother Family Medical History: Unable to Obtain Additional Family Medical History / Comment(s): pt stated that her mother has no med hx General Exam - General Exam Comments Initial Comments: General: The patient is awake and alert, in no distress, and does not appear acutely ill. Eye: +3 mm pupils are equal, round and reactive to light, extra-ocular movements are intact. No nystagmus. There is normal conjunctiva bilaterally. No signs of icterus. Ears, nose, mouth and throat: There are moist mucous membranes and no oral lesions. Neck: The neck is supple, there is no tenderness or JVD. Cardiovascular: There is a regular rate and rhythm. No murmur, rub or gallop is appreciated. Respiratory: Lungs are clear to auscultation, respirations are non-labored, breath sounds are equal. No wheezes, stridor, rales, or rhonchi. Gastrointestinal: Soft, non-distended, non-tender abdomen without masses or organomegaly noted. There is no rebound or guarding present. Pelvic: No external lesions, brown vaginal discharge, no bright red blood, no adnexal or cervical motion tenderness. Musculoskeletal: Normal ROM, no tenderness. Strength 5/5. Sensation intact. Pulses equal bilaterally 2+. Neurological: A&O x 3. CN II-XII intact grossly, There are no obvious motor or sensory deficits. Coordination appears grossly intact. Speech is normal. Skin: Skin is warm and dry and no rashes or lesions are noted. Psychiatric: Cooperative, appropriate mood & affect, normal judgment. Limitations: no limitations Course Vital Signs 04/24/19 12:53 Temperature 98.2 F Pulse Rate 68 Respiratory 19 Rate Blood Pressure 108/46 O2 Sat by Pulse 100 Oximetry Medical Decision Making - Medical Decision Making 23-year-old female presenting today for chief complaint of vaginal discharge in . Brown consisted blood. No cervical motion tenderness. IUP on ultrasound with appropriate heartbeat. No evidence of complicating process at this time. Patient is B+ no need for Janusz at this time. Patient is hemodynamically stable with hemoglobin within acceptable limits. Cultures pending. At this time patient has no pain. She appears well. Agreeable to discharge with scheduled f/u 04/[address] Frederick. Return parameters were discussed and discussed the case attending provider patient is discharged appearing well. - Lab Data Result diagrams: 04/24/19 14:25 04/24/19 14:25 Lab Results 04/24/19 04/24/19 04/24/19 Range/Units 14:25 14:25 14:25 WBC 10.8 H (3.8-10.6) k/uL RBC 4.10 (3.80-5.40) m/uL Hgb 13.0 (11.4-16.0) gm/dL Hct 37.8 (34.0-46.0) % MCV 92.4 (80.0-100.0) fL MCH 31.7 (25.0-35.0) pg MCHC 34.3 (31.0-37.0) g/dL RDW 12.9 (11.5-15.5) % Plt Count 232 (150-450) k/uL Neutrophils % 78 % Lymphocytes % 15 % Monocytes % 3 % Eosinophils % 2 % Basophils % 1 % Neutrophils # 8.4 H (1.3-7.7) k/uL Lymphocytes # 1.6 (1.0-4.8) k/uL Monocytes # 0.3 (0-1.0) k/uL Eosinophils # 0.3 (0-0.7) k/uL Basophils # 0.1 (0-0.2) k/uL Sodium 138 (137-145) mmol/L Potassium 3.8 (3.5-5.1) mmol/L Chloride 106 (98-107) mmol/L Carbon Dioxide 23 (22-30) mmol/L Anion Gap 9 mmol/L BUN 10 (7-17) mg/dL Creatinine 0.60 (0.52-1.04) mg/dL Est GFR (CKD-EPI)AfAm >90 (>60 ml/min/1.73 sqM) Est GFR (CKD-EPI)NonAf >90 (>60 ml/min/1.73 sqM) Glucose 111 H (74-99) mg/dL Calcium 9.3 (8.4-10.2) mg/dL Total Bilirubin 0.4 (0.2-1.3) mg/dL AST 19 (14-36) U/L ALT 12 (4-34) U/L Alkaline Phosphatase 73 (38-126) U/L Total Protein 6.5 (6.3-8.2) g/dL Albumin 4.0 (3.5-5.0) g/dL HCG, Quant 03465.1 mIU/mL Urine Color Urine Appearance (Clear) Urine pH (5.0-8.0) Ur Specific [place] (1.001-1.035) Urine Protein (Negative) Urine Glucose (UA) (Negative) Urine Ketones (Negative) Urine Blood (Negative) Urine Nitrite (Negative) Urine Bilirubin (Negative) Urine Urobilinogen (<2.0) mg/dL Ur Leukocyte Esterase (Negative) Blood Type B Positive Blood Type Recheck B Pos Bld Type Recheck Status No 04/24/19 Range/Units 14:32 WBC (3.8-10.6) k/uL RBC (3.80-5.40) m/uL Hgb (11.4-16.0) gm/dL Hct (34.0-46.0) % MCV (80.0-100.0) fL MCH (25.0-35.0) pg MCHC (31.0-37.0) g/dL RDW (11.5-15.5) % Plt Count (150-450) k/uL Neutrophils % % Lymphocytes % % Monocytes % % Eosinophils % % Basophils % % Neutrophils # (1.3-7.7) k/uL Lymphocytes # (1.0-4.8) k/uL Monocytes # (0-1.0) k/uL Eosinophils # (0-0.7) k/uL Basophils # (0-0.2) k/uL Sodium (137-145) mmol/L Potassium (3.5-5.1) mmol/L Chloride (98-107) mmol/L Carbon Dioxide (22-30) mmol/L Anion Gap mmol/L BUN (7-17) mg/dL Creatinine (0.52-1.04) mg/dL Est GFR (CKD-EPI)AfAm (>60 ml/min/1.73 sqM) Est GFR (CKD-EPI)NonAf (>60 ml/min/1.73 sqM) Glucose (74-99) mg/dL Calcium (8.4-10.2) mg/dL Total Bilirubin (0.2-1.3) mg/dL AST (14-36) U/L ALT (4-34) U/L Alkaline Phosphatase (38-126) U/L Total Protein (6.3-8.2) g/dL Albumin (3.5-5.0) g/dL HCG, Quant mIU/mL Urine Color Yellow Urine Appearance Clear (Clear) Urine pH 6.0 (5.0-8.0) Ur Specific [place] 1.022 (1.001-1.035) Urine Protein Negative (Negative) Urine Glucose (UA) Negative (Negative) Urine Ketones Negative (Negative) Urine Blood Negative (Negative) Urine Nitrite Negative (Negative) Urine Bilirubin Negative (Negative) Urine Urobilinogen <2.0 (<2.0) mg/dL Ur Leukocyte Esterase Negative (Negative) Blood Type Blood Type Recheck Bld Type Recheck Status Disposition Clinical Impression: Vaginal bleeding during Disposition: HOME SELF-CARE Condition: Good Instructions (If sedation given, give patient instructions): Threatened Miscarriage (ED) Additional Instructions: Please use medication as discussed. Please follow-up with OBGYN on the as scheduled. If bleeding increased or experience pain again return to the ER. Please return to emergency room if the symptoms increase or worsen or for any other concerns. Is patient prescribed a controlled substance at d/c from ED?: No Referrals: Tod Kay MD [Primary Care Provider] - 1-2 days Time of Disposition: 16:42
[2019-04-24 17:23] VITALS: BP 117/66; PULSE 63; RESP 18; TEMP 98.3
[2019-04-25 16:37] LABS: C. trachomatis,PCR Negative (Neg,Equiv); Chlamydia trachomatis Source Vagina
[2019-04-25 16:54] LABS: N. gonorrhoeae,PCR Negative (Neg,Equiv); Neisseria Source Vagina
== END 2019-04-24 17:23 | disposition home or self-care (01) ==
LOC: EC 12:39
DX: O20.9 Hemorrhage in early pregnancy, unspecified (principal); Z3A.08 8 weeks gestation of pregnancy; Z79.84 Long term (current) use of oral hypoglycemic drugs
CPT/HCPCS: 36415; 76801; 80053; 81003; 84702; 85025; 86900; 86901; 87070; 87491; 87591; 87808; 99284

== ENCOUNTER 2019-11-15 19:52 | Outpatient (CLI) | payer BC ==
[2019-11-15 21:16] VITALS: BP 126/64; PULSE 96; RESP 18; TEMP 96.3
--- NOTE | 2019-11-27 21:07 | P.MSEPDOC ---
Presenting Problems - Arrival Data Date of Arrival on Unit: 11/15/19 Time of Arrival on Unit: 19:52 Mode of Transport: Ambulatory - Complaint OB-Reason for Admission/Chief Complaint: Possible Onset of Labor Medical History - Information : 3 Para: 1 Term: 1 : 0 Abortions: Spontaneous or Elective: 1 Number of Living Children: 1 - Gestational Age Gestational Age by ESPERANZA (wks/days): 37 Weeks and 2 Days Review of Systems - Review of Systems Constitutional: No problems Breast: No problems ENT: No problems Cardiovascular: No problems Respiratory: No problems Gastrointestinal: No problems Genitourinary: No problems Musculoskeletal: No problems Neurological: No problems Skin: No problems Vital Signs - Temperature Temperature: 96.3 F Temperature Source: Temporal Artery Scan - Pulse Right Pulse Rate: 96 Pulse Assessment Method: Automatic Cuff - Respirations Respiratory Rate: 18 Oxygen Delivery Method: Room Air O2 Sat by Pulse Oximetry: 98 - Blood Pressure Right Arm Blood Pressure: 126/64 Blood Pressure Mean: 84 Blood Pressure Source: Automatic Cuff Medical Screen Scoring (Pre) - Cervical Exam Dilation: 0 cm = 0 Membranes: Intact - Uterine Contractions Frequency: > 5 minutes apart = 1 Duration: N/A Intensity: N/A - Maternal Vital Signs Maternal Temperature: N/A Maternal Blood Pressure: N/A Signs of Preeclampsia: N/A Maternal Respirations: N/A - Maternal Trauma Maternal Trauma: N/A - Assessment - Baby A Baseline FHR: 120 Heart Rate - NICHD Category: Category I (Normal) = 0 NST: Reactive Position: N/A Station: N/A - Total Score - Baby A Total Score - Baby A: 1 - Total Score - Baby B Total Score - Baby B: 1 - Total Score - Baby C Total Score - Baby C: 1 - Level of Risk - Baby A Level of Risk - Baby A: Low (0-5) - Level of Risk - Baby B Level of Risk - Baby B: Low (0-5) - Level of Risk - Baby C Level of Risk - Baby C: Low (0-5) Physician Notification (Pre) - Physician Notified Physician Notified Date: 11/15/19 Physician Notified Time: 21:03 New Order Received: Yes (discharge to keep appt as scheduled) Disposition - Disposition OB Disposition: Discharge to home Discharge Date: 11/15/19 Discharge Time: 21:07 I agree with the RN Medical Screening Exam: Yes Risk & Benefit of care provided described in d/c instruction: Yes Diagnosis: FALSE LABOR AT OR AFTER 37 COMPLETED WEEKS OF GESTATION
== END 2019-11-15 21:10 | disposition home or self-care (01) ==
LOC: FBPOP 19:52
PROVIDERS: ATTEND Obstetrics & Gynecology
DX: O47.1 False labor at or after 37 completed weeks of gestation (principal); Z3A.37 37 weeks gestation of pregnancy
CPT/HCPCS: 59025; 99213

== ENCOUNTER 2019-11-29 23:43 | Inpatient (IN) | payer BC ==
[2019-11-30] MEDS ORDERED: METHYLERGONOVINE 0.2 MG/ML 1 ML AMP IM PRN (00:01)
[2019-11-30] MEDS ORDERED: AMPICILLIN 2,000 MG in SODIUM CHLORIDE 0.9% 100 ML IVPB STA (00:01)
[2019-11-30] MEDS ORDERED: CARBOPROST TROMETHAMINE 250 MCG/ML 1 ML AMP IM PRN (00:01)
[2019-11-30] MEDS ORDERED: LIDOCAINE 0.5% (PF) 5 MG/ML (50 ML SDV) SQ PRN (00:01)
[2019-11-30] MEDS ORDERED: TERBUTALINE 1 MG/ML VIAL SQ PRN (00:01)
[2019-11-30] MEDS ORDERED: OXYTOCIN 10 UNIT/ML 1 ML VIAL IM PRN (00:01)
[2019-11-30] MEDS ORDERED: LACTATED RINGERS 1,000 ML IV SCH (00:15)
[2019-11-30 00:28] LABS: Basophils # (A) 0.1 k/uL (0-0.2); Basophils % (A) 0 %; Eosinophils # (A) 0.2 k/uL (0-0.7); Eosinophils % (A) 1 %; Lymphocytes # (A) 1.7 k/uL (1.0-4.8); Lymphocytes % (A) 12 %; MCH 29.3 pg (25.0-35.0); MCHC 32.4 g/dL (31.0-37.0); MCV 90.4 fL (80.0-100.0); Mean Platelet Volume 8.7; Monocytes # (A) 0.4 k/uL (0-1.0); Monocytes % (A) 3 %; Neutrophils # (A) 11.2 k/uL (1.3-7.7); Neutrophils % (A) 82 %; Platelet Count 244 k/uL (150-450); RBC 4.09 m/uL (3.80-5.40); RDW 13.9 % (11.5-15.5); WBC 13.7 k/uL (3.8-10.6)
[2019-11-30] MEDS ORDERED: bisacodyL 10 MG SUPP RECTAL PRN (00:49)
[2019-11-30] MEDS ORDERED: BENZOCAINE/MENTHOL SPRAY 1 GM/SPRAY AEROSOL TOPICAL PRN (00:49)
[2019-11-30] MEDS ORDERED: ZOLPIDEM 5 MG TAB PO PRN (00:49)
[2019-11-30] MEDS ORDERED: diphenhydrAMINE 50 MG/ML 1 ML VIAL IVP PRN (00:49)
[2019-11-30] MEDS ORDERED: diphenhydrAMINE 25 MG CAP PO PRN (00:49)
[2019-11-30] MEDS ORDERED: ACETAMINOPHEN TAB 325 MG TAB PO PRN (00:49)
[2019-11-30] MEDS ORDERED: SIMETHICONE 80 MG CHEWABLE PO PRN (00:49)
[2019-11-30] MEDS ORDERED: LANOLIN CREAM 5 GM TUBE TOPICAL PRN (00:49)
[2019-11-30] MEDS ORDERED: HYDROCORTISONE 2.5% RECTAL CREAM 30 GM TUBE RECTAL PRN (00:49)
--- NOTE | 2019-11-30 00:56 | P.HPOB ---
History of Present Illness H&P Date: 11/30/19 Chief Complaint: Contractions This patient is a pleasant 24-year-old 3 para 1 female estimated date of confinement 12/04/2019 estimated gestational age 39-3/7 weeks who presents to labor and delivery with complaints of regular painful contractions since earlier this evening. Patient's care is per Dr. Nieves and appears to be uncomplicated with the exception of a positive group B strep culture. Patient on arrival is 8 cm dilated thought to be in active labor. Review of Systems Genitourinary: Reports Menstruation: Reports amenorrhea Past Medical History Past Medical History: No Reported History Additional Past Medical History / Comment(s): Patient's had a previous term vaginal delivery was complicated by gestational diabetes History of Any Multi-Drug Resistant Organisms: None Reported Additional Past Surgical History / Comment(s): pt had ectopic approx dec 2016 and patient was treated with methotrexate Past Anesthesia/Blood Transfusion Reactions: No Reported Reaction Past Psychological History: Depression Smoking Status: Never smoker Past Alcohol Use History: None Reported Past Drug Use History: None Reported - Past Family History Father Additional Family Medical History / Comment(s): pt stated that her father had MRSA Mother Family Medical History: Unable to Obtain Additional Family Medical History / Comment(s): pt stated that her mother has no med hx Medications and Allergies Home Medications Medication Instructions Recorded Confirmed Type Pnv No.95/Ferrous Fum/Folic AC 1 tab PO DAILY 08/08/17 11/30/19 History [ Multivitamin Tablet] Allergies Allergy/AdvReac Type Severity Reaction Status Date / Time No Known Allergies Allergy Verified 11/30/19 00:01 Exam Intake and Output 11/29/19 11/29/19 11/30/19 14:59 22:59 06:59 Other: Weight 92.986 kg - OBG Physical Exam Vulva: both: normal Vagina: normal moisture, no discharge Cervix: no lesion (On admission patient is 8 cm dilated and 0 station intact membranes.), no discharge Uterus: enlarged (Fundal height consistent with gestational age) Results blood work shows she is B positive, rubella immune, RPR nonreactive, h epatitis B negative, RPR nonreactive, HIV is nonreactive, she had an abnormal Glucola with a normal three-hour gtt., she had normal growth ultrasounds that she's had normal anatomy ultrasound. Result Diagrams: 11/30/19 00:15 Abnormal Lab Results - Last 24 Hours (Table) 11/30/19 Range/Units 00:15 WBC 13.7 H (3.8-10.6) k/uL Neutrophils # 11.2 H (1.3-7.7) k/uL Assessment and Plan Assessment: This is a pleasant 24-year-old 3 para 1 female 39-3/7 weeks gestation admitted to labor and delivery in active labor. She does have a positive culture for group B strep. Plan is antibiotic prophylaxis and anticipate vaginal delivery. (1) 39 weeks gestation of Current Visit: Yes Status: Acute Code(s): Z3A.39 - 39 WEEKS GESTATION OF SNOMED Code(s): 74805775 (2) Normal labor Current Visit: No Status: Acute Code(s): O80 - ENCOUNTER FOR FULL-TERM UNCOMPLICATED DELIVERY; Z37.9 - OUTCOME OF DELIVERY, UNSPECIFIED SNOMED C ode(s): 35476198 (3) Group B streptococcal carriage complicating Current Visit: Yes Status: Acute Code(s): O99.820 - STREPTOCOCCUS B CARRIER STATE COMPLICATING SNOMED Code(s): 208507051265175
--- NOTE | 2019-11-30 00:58 | P.PROBDLV ---
Vaginal Delivery Note - . Vaginal Delivery Note: Normal spontaneous vaginal delivery viable female infant Apgars are 9 and 9 delivery time was 0040 hours. Please see dictated H&P for intimate details of this patient's admission. Brief summary this is a pleasant 24-year-old 3 para 1 female estimated gestational age 39-3/7 weeks who presents to labor and complaints of regular contractions since earlier today. On admission patient is 8 cm dilated is artificial rupture membranes for clear fluid. Antibiotics are ordered for group B strep. Patient quickly gets to complete and pushes the head to the perineum. Posterior perineum is supported we have controlled delivery of infant's head over the intact perineum. Mouth and nares are bulb suctioned. There is no evidence of a nuchal cord. Infant's head is straight occiput anterior presentation. Gentle downward traction we then have deliver the anterior and posterior shoulder and rest this 's body. Is a vigorous viable female infant Apgars are 9 and 9 delivery time is 0040 hours. After delivery of the infant the umbilical cord is doubly clamped and cut appears to be trivascular. Placenta is then spontaneously delivered intact. Inspection of perineum shows no lacerations no repairs required S May blood loss approximately 150 mL. Infant and mother stable delivery room. All counts correct 3. There are no complications.
[2019-11-30] MEDS ORDERED: OXYTOCIN 20 UNITS/1000 ML NS 1,000 ML IV SCH (01:00)
[2019-11-30] MEDS: IBUPROFEN 600 MG TAB PO PRN ×3 (01:01→15:30)
[2019-11-30] MEDS ORDERED: AMPICILLIN 1,000 MG in SODIUM CHLORIDE 0.9% 50 ML IVPB SCH (04:02)
[2019-11-30] MEDS: SENNOSIDES-DOCUSATE SODIUM 1 EACH TAB PO SCH (07:43)
[2019-12-01] MEDS: IBUPROFEN 600 MG TAB PO PRN ×3 (00:08→14:25)
[2019-12-01] MEDS: SENNOSIDES-DOCUSATE SODIUM 1 EACH TAB PO SCH ×2 (02:07→13:03)
--- NOTE | 2019-12-01 08:17 | P.PNOBGVD ---
Subjective - Subjective Principal diagnosis: day 1 Interval history: Patient is doing very well day 1. She is ambulating, voiding and tolerating her diet. She voices no complaints. Baby has to stay 48 hours therefore we'll plan to continue current care for now. Patient reports: Reports appetite normal, Reports voiding normally, Reports pain well controlled, Reports ambulating normally [place]: doing well Objective - Latest Vital Signs Latest vital signs: Vital Signs Temp Pulse Resp BP Pulse Ox 12/01/19 00:00 98 F 84 16 128/82 99 11/30/19 16:00 98.1 F 75 18 117/64 98 11/30/19 12:00 98.4 F 79 18 124/70 98 Intake and Output 11/30/19 12/01/19 12/01/19 22:59 06:59 14:59 Other: # Voids 1 1 - Exam Lungs: bilateral: normal Chest: Normal S1, Normal S2 Extremities: Present: normal Abdomen: Present: normal appearance, soft Uterus: Present: normal, firm
--- NOTE | 2019-12-01 12:40 | P.DS ---
Providers Date of admission: 11/30/19 00:00 Expected date of discharge: 12/01/19 Attending physician: Aryan Frederick Primary care physician: Stated None Hospital Course: Patient is doing very well this afternoon. Baby is currently able to go home. We'll plan discharged home later today. Vital signs are stable and afebrile. There is no other changes from dictation earlier today on physical exam. Discharge instructions thoroughly reviewed and a prescription for Motrin was 40 to the pharmacy. All other questions are answered and she is stable for discharge this time. She'll follow me in 6 weeks. Patient Condition at Discharge: Good Plan - Discharge Summary New Discharge Prescriptions: New Ibuprofen [Motrin] 600 mg PO Q6HR PRN #30 tab PRN Reason: Pain No Action Pnv No.95/Ferrous Fum/Folic AC [ Multivitamin Tablet] 1 tab PO DAILY Discharge Medication List Pnv No.95/Ferrous Fum/Folic AC [ Multivitamin Tablet] 1 tab PO DAILY 08/08/17 [History] Ibuprofen [Motrin] 600 mg PO Q6HR PRN #30 tab 12/01/19 [Rx] Follow up Appointment(s)/Referral(s): Aryan Frederick DO [Doctor of Osteopathic Medicine] - 6 Weeks Activity/Diet/Wound Care/Special Instructions: No heavy lifting, limit stairs and driving, if any high temperatures, heavy ble eding, or severe pain call my office Discharge Disposition: HOME SELF-CARE
[2019-12-01 13:02] VITALS: BP 119/69; PULSE 79; RESP 18; TEMP 97.6
== END 2019-12-01 14:35 | disposition home or self-care (01) | DRG 807 ==
LOC: FBPOP 23:43 → 4FBP 11-30
PROVIDERS: ADMIT Obstetrics & Gynecology; ATTEND Obstetrics & Gynecology
PROC: 10E0XZZ Delivery of Products of Conception, External Approach (ICD-10-PCS; principal; 2019-11-30)
PROC: 10907ZC Drainage of Amniotic Fluid, Therapeutic from Products of Conception, Via Natural or Artificial Opening (ICD-10-PCS; 2019-11-30)
DX: O99.824 Streptococcus B carrier state complicating childbirth (principal); Z37.0 Single live birth; O99.344 Other mental disorders complicating childbirth; Z3A.39 39 weeks gestation of pregnancy; F32.9 Major depressive disorder, single episode, unspecified; Z79.899 Other long term (current) drug therapy; Z87.59 Personal history of other complications of pregnancy, childbirth and the puerperium; Z83.1 Family history of other infectious and parasitic diseases
CPT/HCPCS: 85025; 86850; 86900; 86901; 99213

== ENCOUNTER → 2020-02-17 | Outpatient (CLI) | payer BC, OTHER ==
[2020-02-17 15:35] LABS: HCT 39.8 % (34.0-46.0); MCH 29.4 pg (25.0-35.0); MCHC 32.7 g/dL (31.0-37.0); MCV 89.8 fL (80.0-100.0); Mean Platelet Volume 7.4; Platelet Count 283 k/uL (150-450); RBC 4.43 m/uL (3.80-5.40); WBC 8.4 k/uL (3.8-10.6)
== END | disposition home or self-care (01) ==
LOC: LABPAT 11:52
PROVIDERS: ATTEND Surgery Plastic and Reconstructive Surgery
DX: K43.9 Ventral hernia without obstruction or gangrene (principal)
CPT/HCPCS: 36415; 85027

== ENCOUNTER 2020-02-19 08:26 | Day surgery (SDC) | payer BC, OTHER ==
[2020-02-16 15:21] VITALS: BMI 33.7
--- NOTE | 2020-02-19 07:57 | P.GSHP ---
History of Present Illness H&P Date: 02/19/20 CHIEF COMPLAINT: Ventral hernia. HISTORY OF PRESENT ILLNESS: The patient is a 24-year-old female who presents with a history of swelling along the mid-abdomen. Findings were consistent with ventral hernia. Now she presents for further evaluation and management. PAST MEDICAL HISTORY: Please see list. PAST SURGICAL HISTORY: Please see list. MEDICATIONS: Please see list. ALLERGIES: Please see list. SOCIAL HISTORY: No illicit drug use FAMILY HISTORY: No reports of Crohn disease or ulcerative colitis. REVIEW OF ORGAN SYSTEMS: CONSTITUTIONAL: No reports of fevers or chills. GI: Denies any blood in stools or constipation. PHYSICAL EXAM: VITAL SIGNS: Stable GENERAL: Well-developed pleasant female in no acute distress. HEENT: No scleral icterus. Extraocular movements grossly intact. Moist buccal mucosa. NECK: Supple without lymphadenopathy. CHEST: Unlabored respirations. Equal bilateral excursions. CARDIOVASCULAR: Regular rate and rhythm. Distal 2+ pulses. ABDOMEN: Soft, nondistended. Tender along the mid-abdomen. MUSCULOSKELETAL: No clubbing, cyanosis, or edema. ASSESSMENT: 1. Ventral hernia. PLAN: 1. Recommend proceeding with robotic ventral hernia repair with mesh. 2. Benefits and risks of surgical intervention was discussed including possibility of open technique. 3. DVT prophylaxis. 4. Antibiotic prophylaxis. Past Medical History Past Medical History: No Reported History, GERD/Reflux Additional Past Medical History / Comment(s): ventral hernia hx Patient's had a previous term vaginal delivery was complicated by gestational diabetes,pt had ectopic approx dec 2016 and patient was treated with methotrexate History of Any Multi-Drug Resistant Organisms: None Reported Past Surgical History: No Surgical Hx Reported Additional Past Surgical History / Comment(s): pt had ectopic approx dec 2016 and patient was treated with methotrexate Past Anesthesia/Blood Transfusion Reactions: No Reported Reaction Additional Past Anesthesia/Blood Transfusion Reaction / Comment(s): no hx blood transfusion Smoking Status: Former smoker - Past Family History Father Additional Family Medical History / Comment(s): pt stated that her father had MRSA Mother Family Medical History: No Reported History Additional Family Medical History / Comment(s): pt stated that her mother has no med hx Medications and Allergies Home Medications Medication Instructions Recorded Confirmed Type No Known Home Medications 02/16/20 02/16/20 History Allergies Allergy/AdvReac Type Severity Reaction Status Date / Time No Known Allergies Allergy Verified 02/16/20 15:14
[~2020-02-19 08:26] MED LIST: ACETAMINOPHEN TAB 500 MG TAB PO STA; DEXAMETHASONE SOD PHOSPHATE 4 MG/ML 1 ML VIAL IV ONE; HEPARIN SODIUM,PORCINE 5,000 UNIT/ML 1 ML VIAL SQ ONE; HYDROmorphone 0.5 MG/0.5 ML SYRINGE IVP PRN; LACTATED RINGERS 1,000 ML IV SCH; LIDOCAINE 1% (10MG/ML) FOR IV START INTRADERMA PRN; MIDAZOLAM 2 MG/2 ML VIAL IV PRN; ONDANSETRON 4 MG/2 ML VIAL IVP ONE; SCOPOLAMINE 1.5MG/72HR PATCH TRANSDERM STA
[2020-02-19] MEDS ORDERED: MIDAZOLAM 2 MG/2 ML VIAL IVP ONE (09:44)
--- NOTE | 2020-02-19 10:11 | P.ANPRN ---
Procedure Note - Anesthesia - Nerve Block Performed Bilateral Rectus Abdominis Single Time Out Performed: Yes Date of Procedure: 02/19/20 Procedure Start Time: :43 Procedure Stop Time: :52 Location of Patient: PreOp Indication: Acute Post-Operative Pain, Requested by Surgeon Sedation Type: Sedate with meaningful contact maintained Preparation: Sterile Prep Position: Supine Needle Types: [place]unk Needle Gauge: 21 Ultrasound used to visualize needle placement: Yes Ultrasound used to observe medication spread: Yes Blood Aspirated: No Pain Paresthesia on Injection Noted: No Resistance on Injection: Normal Image Stored and Saved: Yes Events: Uneventful and Well Tolerated (ropi .5% 20 cc plus dexamethasone 4mg bilaterally)
[2020-02-19] MEDS ORDERED: LIDOCAINE 1%-EPI 1:100,000 20 ML VIAL SQ ONE ×2 (11:05→11:41)
[2020-02-19] MEDS ORDERED: fentaNYL (PF) 50 MCG/ML 2 ML AMP ONE (11:09)
[2020-02-19] MEDS ORDERED: ROPIVACAINE 5 MG/ML 30 ML VIAL ONE (11:09)
[2020-02-19] MEDS ORDERED: HYDROmorphone (PF) 1 MG/ML ONE (11:09)
[2020-02-19] MEDS ORDERED: DEXAMETHASONE SOD PHOSPHATE 4 MG/ML 1 ML VIAL ONE (11:09)
[2020-02-19] MEDS ORDERED: LIDOCAINE 1% INJ 10MG/ML (20 ML MDV) ONE (11:09)
[2020-02-19] MEDS ORDERED: PROPOFOL 10 MG/ML 20 ML VIAL IV ONE (11:09)
[2020-02-19] MEDS ORDERED: MIDAZOLAM 2 MG/2 ML VIAL ONE (11:09)
[2020-02-19] MEDS ORDERED: SUCCINYLCHOLINE CHLORIDE 100 MG/5 ML SYR IV ONE (11:09)
[2020-02-19] MEDS ORDERED: GLYCOPYRROLATE 0.2 MG/ML 2 ML VIAL ONE (11:09)
[2020-02-19] MEDS ORDERED: ROCURONIUM 10 MG/ML (10 ML VIAL) IV ONE (11:09)
[2020-02-19] MEDS ORDERED: NEOSTIGMINE 1 MG/ML 10 ML VIAL ONE (11:09)
[2020-02-19] MEDS ORDERED: LACTATED RINGERS 1,000 ML IV ONE (11:50)
[2020-02-19 12:41] VITALS: TEMP 97
[2020-02-19] MEDS ORDERED: oxyCODONE-APAP 5-325MG 1 EACH TAB PO PRN (13:11)
[2020-02-19] MEDS ORDERED: KETOROLAC 15 MG/ML 1 ML VIAL IVP PRN (13:11)
--- NOTE | 2020-02-19 13:18 | P.OP ---
Date of Procedure: 02/19/20 Description of Procedure: SURGEON: FILOMENA SANDOVAL MD PREOPERATIVE DIAGNOSES: 1. Initial umbilical hernia with incarceration 2. , 2 months POSTOPERATIVE DIAGNOSES: 1. Initial umbilical hernia with incarceration, 1 cm 2. , 2 months OPERATION: 1. Robotic-assisted da Lorie Xi laparoscopic repair of initial incarcerated umbilical hernia 1 cm without mesh ANESTHESIA: General with local ESTIMATED BLOOD LOSS: 5 mL. SPECIMENS: None. COMPLICATIONS: None. FINDINGS: 1. Initial incarcerated umbilical hernia, 1 cm with contents of pre-peritoneal fat. INDICATIONS: The patient is a 24-year-old male who presents with initial umbilical hernia following . Surgical intervention with laparoscopic versus robotic and open techniques were reviewed. Placement of mesh was also reviewed. Benefits and risks were thoroughly described. Informed consent was obtained. DESCRIPTION OF PROCEDURE: The patient was brought into the operating room and laid in supine position. After general induction, the abdomen had been prepped and draped in standard sterile fashion. Ioban draping was also placed. Prior to incision, a timeout protocol was confirmed with surgical team regarding the patient's name including procedures to be performed. The robot was primed prior to the procedure. A field block using local anesthetic was placed along hernia site including the proposed port sites. Initial incision was made with an #11 blade along the left upper quadrant. A 0 degree 5 mm laparoscopic trocar entry was performed. Diagnostic laparoscopy demonstrated an incarcerated umbilical hernia. Three 8 mm trocars were placed along the right lateral abdominal wall. Placements of the ports were 15 cm from the target anatomy and 9 cm apart. The da Lorie Xi robot was previously primed, prepped and draped then docked along the left side of the patient. I then sat at the robot Da Lorie Xi console where working arms of the robot were scissors, needle [employer] company flatbed driver, and graspers placed by the telecom assistant. Attention was brought to the umbilicus where the peritoneum was scored and an incarcerated umbilical hernia was identified containing fat. The incarcerated contents was reduced as the peritoneal fat was cleaned from the abdominal wall. Next, hemostasis was checked with cautery. The hernia defect of 1-cm was oversewn using #1 VLOC with fascial imbrication 3. A final endoscopic imaging was obtained. All instruments and pneumoperitoneum were evacuated from the abdominal cavity. The da Lorie Xi robot was undocked from the patient. I re-scrubbed into the case for closure of incisions. At the umbilicus, the skin was oversewn with 4-0 Monocryl. An umbilical dressing using 4 x 4 and Tegaderm was placed. The incisions were reapproximated using 4-0 Monocryl in an interrupted subcuticular fashion. Exofin liquid glue was applied to the skin after cleansing the skin with normal saline and dilute hydrogen peroxide. An abdominal binder was placed. At the end of the procedure, needle, sponge, and instrument count had been verified correct by electronic lab technician. The patient was taken to the postanesthesia care unit in stable condition. Plan - Discharge Summary New Discharge Prescriptions: New Cyclobenzaprine [Flexeril] 10 mg PO TID #30 tab Ibuprofen [Motrin] 600 mg PO Q8HR PRN #30 tab PRN Reason: Pain Acetaminophen Tab [Tylenol Tab] 1,000 mg PO Q6HR PRN #30 tablet PRN Reason: Pain Discharge Medication List Acetaminophen Tab [Tylenol Tab] 1,000 mg PO Q6HR PRN #30 tablet 02/19/20 [Rx] Cyclobenzaprine [Flexeril] 10 mg PO TID #30 tab 02/19/20 [Rx] Ibuprofen [Motrin] 600 mg PO Q8HR PRN #30 tab 02/19/20 [Rx] Follow up Appointment(s)/Referral(s): Filomena Sandoval MD [STAFF PHYSICIAN] - 02/24/20 Patient Instructions/Handouts: Abdominal Binder (DC), Laparoscopic Herniorrhaphy (DC), Umbilical Hernia Repair (DC) Activity/Diet/Wound Care/Special Instructions: DO NOT REMOVE DRESSING May shower. No bathtub soaks for 2 weeks, Mar. Wear abdominal binder at all times except showering. Using antibacterial soap. No lifting over 4 pounds 4 weeksMar 20 Use ice along incisions for the today to prevent swelling. Discharge Disposition: HOME SELF-CARE
[2020-02-19 15:00] VITALS: RESP 18
[2020-02-19 15:02] VITALS: BP 126/78; PULSE 87
== END 2020-02-19 15:32 | disposition home or self-care (01) ==
LOC: OR 08:26
PROVIDERS: ATTEND Surgery Plastic and Reconstructive Surgery
DX: K42.0 Umbilical hernia with obstruction, without gangrene (principal); K21.9 Gastro-esophageal reflux disease without esophagitis; Z87.891 Personal history of nicotine dependence; Z86.32 Personal history of gestational diabetes
CPT/HCPCS: 81025; 64488; 88302; 49653; J2250; J1644; J1100; J2710; J0690; J2405; J2001; J3010; J1170; J2795; J0330; J2704

== ENCOUNTER 2020-03-10 01:47 | Emergency (ER) | payer BC, OTHER ==
[2020-03-10 01:52] VITALS: TEMP 98.3
[2020-03-10] MEDS ORDERED: DICYCLOMINE 20 MG TAB PO STA (02:33)
--- NOTE | 2020-03-10 02:41 | ED ---
Abdominal Pain HPI - General Chief Complaint: Abdominal Pain Stated Complaint: Abd Pain Time Seen by Provider: 03/10/20 02:22 Source: patient Mode of arrival: ambulatory Limitations: no limitations - History of Present Illness Initial Comments: This patient is 24-year-old woman with very umbilical and upper abdominal pain that radiates to her back. She describes a sharp and severe. She is concerned that it may be related to hernia repair which was performed on February [address] Sandoval. The patient was also concerned because she started having a little bit of drainage from the umbilicus probably about 3 days ago. She started using a topical antibiotic and notes that it has slowed a little bit. In addition, patient states that a few days ago she felt a pop at the umbilical area and there may have been a bulge there. She states that she had hugged her boyfriend at the time that the pop occurred MD Complaint: abdominal pain -: hour(s) Location: periumbilical, LUQ, RUQ Radiation: back Severity: severe Quality: sharp Consistency: constant Improves With: nothing Worsens With: nothing Associated Symptoms: denies other symptoms - Related Data Previous Rx's Medication Instructions Recorded Acetaminophen Tab [Tylenol Tab] 1,000 mg PO Q6HR PRN #30 tablet 02/19/20 Cyclobenzaprine [Flexeril] 10 mg PO TID #30 tab 02/19/20 Ibuprofen [Motrin] 600 mg PO Q8HR PRN #30 tab 02/19/20 oxyCODONE-APAP 5-325MG [Percocet 1 tab PO Q4HR PRN 3 Days #18 tab 02/19/20 5-325 mg] Allergies Allergy/AdvReac Type Severity Reaction Status Date / Time No Known Allergies Allergy Verified 03/10/20 01:52 Review of Systems ROS Statement: Those systems with pertinent positive or pertinent negative responses have been documented in the HPI. ROS Other: All systems not noted in ROS Statement are negative. Constitutional: Denies: fever, chills Respiratory: Denies: cough, dyspnea Cardiovascular: Denies: chest pain, palpitations, edema, syncope Gastrointestinal: Reports: abdominal pain. Denies: nausea, vomiting, diarrhea, constipation, melena, hematochezia Genitourinary: Denies: dysuria, frequency, hematuria, abnormal menses Musculoskeletal: Denies: back pain Skin: Denies: rash Neurological: Denies: headache, weakness Past Medical History Past Medical History: GERD/Reflux Additional Past Medical History / Comment(s): ventral hernia hx Patient's had a previous term vaginal delivery was complicated by gestational diabetes,pt had ectopic approx dec 2016 and patient was treated with methotrexate History of Any Multi-Drug Resistant Organisms: None Reported Past Surgical History: Hernia Repair Additional Past Surgical History / Comment(s): pt had ectopic approx dec 2016 and patient was treated with methotrexate Past Anesthesia/Blood Transfusion Reactions: No Reported Reaction Additional Past Anesthesia/Blood Transfusion Reaction / Comment(s): no hx blood transfusion Past Psychological History: Depression Smoking Status: Former smoker Past Alcohol Use History: None Reported Past Drug Use History: None Reported - Past Family History Father Additional Family Medical History / Comment(s): pt stated that her father had MRSA Mother Family Medical History: No Reported History Additional Family Medical History / Comment(s): pt stated that her mother has no med hx General Exam Limitations: no limitations General appearance: alert, in no apparent distress Head exam: Present: atraumatic, normocephalic Eye exam: Present: normal appearance. Absent: scleral icterus, conjunctival injection Respiratory exam: Present: normal lung sounds bilaterally. Absent: respiratory distress, wheezes, rales, rhonchi, stridor Cardiovascular Exam: Present: regular rate, normal rhythm, normal heart sounds. Absent: systolic murmur, diastolic murmur, rubs, gallop GI/Abdominal exam: Present: soft, normal bowel sounds. Absent: distended, tenderness, guarding, rebound, rigid, mass, pulsatile mass, hernia Extremities exam: Present: normal inspection, normal capillary refill. Absent: pedal edema, calf tenderness Back exam: Present: normal inspection Neurological exam: Present: alert Skin exam: Present: warm, dry, intact, normal color. Absent: rash Course Vital Signs 03/10/20 01:50 Temperature 98.3 F Pulse Rate 94 Respiratory 20 Rate Blood Pressure 123/80 O2 Sat by Pulse 99 Oximetry Medical Decision Making - Lab Data Result diagrams: 03/10/20 02:44 03/10/20 02:44 Lab Results 03/10/20 03/10/20 03/10/20 Range/Units 02:44 02:44 02:44 WBC 7.8 (3.8-10.6) k/uL RBC 4.27 (3.80-5.40) m/uL Hgb 12.5 (11.4-16.0) gm/dL Hct 37.7 (34.0-46.0) % MCV 88.3 (80.0-100.0) fL MCH 29.3 (25.0-35.0) pg MCHC 33.2 (31.0-37.0) g/dL RDW 14.5 (11.5-15.5) % Plt Count 279 (150-450) k/uL MPV 7.2 Neutrophils % 73 % Lymphocytes % 17 % Monocytes % 5 % Eosinophils % 3 % Basophils % 0 % Neutrophils # 5.7 (1.3-7.7) k/uL Lymphocytes # 1.3 (1.0-4.8) k/uL Monocytes # 0.4 (0-1.0) k/uL Eosinophils # 0.3 (0-0.7) k/uL Basophils # 0.0 (0-0.2) k/uL Sodium (137-145) mmol/L Potassium (3.5-5.1) mmol/L Chloride (98-107) mmol/L Carbon Dioxide (22-30) mmol/L Anion Gap mmol/L BUN (7-17) mg/dL Creatinine (0.52-1.04) mg/dL Est GFR (CKD-EPI)AfAm (>60 ml/min/1.73 sqM) Est GFR (CKD-EPI)NonAf (>60 ml/min/1.73 sqM) Glucose (74-99) mg/dL Calcium (8.4-10.2) mg/dL Total Bilirubin (0.2-1.3) mg/dL AST (14-36) U/L ALT (4-34) U/L Alkaline Phosphatase (38-126) U/L C-Reactive Protein (<10.0) mg/L Total Protein (6.3-8.2) g/dL Albumin (3.5-5.0) g/dL Amylase (30-110) U/L Lipase (23-300) U/L Urine Color Light Yellow Urine Appearance Clear (Clear) Urine pH 6.0 (5.0-8.0) Ur Specific [place] 1.012 (1.001-1.035) Urine Protein Negative (Negative) Urine Glucose (UA) Negative (Negative) Urine Ketones Negative (Negative) Urine Blood Negative (Negative) Urine Nitrite Negative (Negative) Urine Bilirubin Negative (Negative) Urine Urobilinogen <2.0 (<2.0) mg/dL Ur Leukocyte Esterase Large H (Negative) Urine RBC 3 (0-5) /hpf Urine WBC 6 H (0-5) /hpf Ur Squamous Epith Cells 7 H (0-4) /hpf Urine Bacteria Rare H (None) /hpf Urine Mucus Rare H (None) /hpf Urine HCG, Qual Not Detected (Not Detectd) 03/10/20 Range/Units 02:44 WBC (3.8-10.6) k/uL RBC (3.80-5.40) m/uL Hgb (11.4-16.0) gm/dL Hct (34.0-46.0) % MCV (80.0-100.0) fL MCH (25.0-35.0) pg MCHC (31.0-37.0) g/dL RDW (11.5-15.5) % Plt Count (150-450) k/uL MPV Neutrophils % % Lymphocytes % % Monocytes % % Eosinophils % % Basophils % % Neutrophils # (1.3-7.7) k/uL Lymphocytes # (1.0-4.8) k/uL Monocytes # (0-1.0) k/uL Eosinophils # (0-0.7) k/uL Basophils # (0-0.2) k/uL Sodium 139 (137-145) mmol/L Potassium 4.1 (3.5-5.1) mmol/L Chloride 108 H (98-107) mmol/L Carbon Dioxide 25 (22-30) mmol/L Anion Gap 6 mmol/L BUN 13 (7-17) mg/dL Creatinine 0.72 (0.52-1.04) mg/dL Est GFR (CKD-EPI)AfAm >90 (>60 ml/min/1.73 sqM) Est GFR (CKD-EPI)NonAf >90 (>60 ml/min/1.73 sqM) Glucose 120 H (74-99) mg/dL Calcium 9.3 (8.4-10.2) mg/dL Total Bilirubin 0.4 (0.2-1.3) mg/dL AST 18 (14-36) U/L ALT 20 (4-34) U/L Alkaline Phosphatase 76 (38-126) U/L C-Reactive Protein 15.2 H (<10.0) mg/L Total Protein 6.7 (6.3-8.2) g/dL Albumin 4.1 (3.5-5.0) g/dL Amylase 47 (30-110) U/L Lipase 145 (23-300) U/L Urine Color Urine Appearance (Clear) Urine pH (5.0-8.0) Ur Specific [place] (1.001-1.035) Urine Protein (Negative) Urine Glucose (UA) (Negative) Urine Ketones (Negative) Urine Blood (Negative) Urine Nitrite (Negative) Urine Bilirubin (Negative) Urine Urobilinogen (<2.0) mg/dL Ur Leukocyte Esterase (Negative) Urine RBC (0-5) /hpf Urine WBC (0-5) /hpf Ur Squamous Epith Cells (0-4) /hpf Urine Bacteria (None) /hpf Urine Mucus (None) /hpf Urine HCG, Qual (Not Detectd) Disposition Clinical Impression: Abdominal pain Disposition: HOME SELF-CARE Condition: Good Instructions (If sedation given, give patient instructions): Abdominal Pain (ED) Is patient prescribed a controlled substance at d/c from ED?: No Referrals: Tod Kay MD [Primary Care Provider] - 1-2 days Filomena Sandoval MD [STAFF PHYSICIAN] - 1-2 days
[2020-03-10 03:05] LABS: Basophils % (A) 0 %; Eosinophils # (A) 0.3 k/uL (0-0.7); Eosinophils % (A) 3 %; HCT 37.7 % (34.0-46.0); HGB 12.5 gm/dL (11.4-16.0); Lymphocytes # (A) 1.3 k/uL (1.0-4.8); Lymphocytes % (A) 17 %; MCH 29.3 pg (25.0-35.0); MCHC 33.2 g/dL (31.0-37.0); MCV 88.3 fL (80.0-100.0); Mean Platelet Volume 7.2; Monocytes # (A) 0.4 k/uL (0-1.0); Monocytes % (A) 5 %; Neutrophils # (A) 5.7 k/uL (1.3-7.7); Neutrophils % (A) 73 %; Platelet Count 279 k/uL (150-450); RBC 4.27 m/uL (3.80-5.40); RDW 14.5 % (11.5-15.5); WBC 7.8 k/uL (3.8-10.6)
[2020-03-10 03:29] LABS: Appearance,Urine Clear (Clear); Bacteria,Urine Rare /hpf; Bilirubin,Urine Negative (Negative); Blood,Urine Negative (Negative); Color,Urine Light Yellow; Glucose,Urine (UA) Negative (Negative); Ketones,Urine Negative (Negative); Leukocyte Esterase,Urine Large (Negative); Mucus,Urine Rare /hpf; Nitrite,Urine Negative (Negative); Protein,Urine Negative (Negative); RBC,Urine 3 /hpf (0-5); Specific Gravity,Urine 1.012 (1.001-1.035); Squamous Epithelial Cell,Urine 7 /hpf (0-4); Urobilinogen,Urine <2.0 mg/dL (<2.0); WBC,Urine 6 /hpf (0-5)
[2020-03-10 03:34] LABS: ALT 20 U/L (4-34); AST 18 U/L (14-36); African American GFR (CKD) >90 (>60 ml/min/1.73 sqM); Albumin 4.1 g/dL (3.5-5.0); Alkaline Phosphatase 76 U/L (38-126); Amylase 47 U/L (30-110); Anion Gap 6 mmol/L; Blood Urea Nitrogen 13 mg/dL (7-17); Calcium 9.3 mg/dL (8.4-10.2); Carbon Dioxide 25 mmol/L (22-30); Chloride 108 mmol/L (98-107); Glucose 120 mg/dL (74-99); Lipase 145 U/L (23-300); Non-African American GFR(CKD) >90 (>60 ml/min/1.73 sqM); Potassium 4.1 mmol/L (3.5-5.1); Sodium 139 mmol/L (137-145); Total Bilirubin 0.4 mg/dL (0.2-1.3); Total Protein 6.7 g/dL (6.3-8.2)
--- NOTE | 2020-03-10 04:02 | XR ---
EXAM: XR Abdomen, 2 Views CLINICAL HISTORY: ITS.REASON XR Reason: abdominal pain TECHNIQUE: Frontal view of the abdomen/pelvis with upright view of the abdomen. COMPARISON: none available FINDINGS: Intraperitoneal space: No free air. Gastrointestinal tract: Unremarkable. No dilation. Bones/joints: Unremarkable. IMPRESSION: Nonobstructive bowel gas pattern. No intraperitoneal free air.
[2020-03-10 04:29] LABS: C Reactive Protein 15.2 mg/L (<10.0)
[2020-03-10 06:03] VITALS: BP 123/63; PULSE 82; RESP 18
== END 2020-03-10 05:48 | disposition home or self-care (01) ==
LOC: EC 01:47
DX: R10.33 Periumbilical pain (principal); R10.11 Right upper quadrant pain; R10.12 Left upper quadrant pain; Z87.891 Personal history of nicotine dependence
CPT/HCPCS: 36415; 74018; 80053; 81001; 81025; 82150; 83690; 85025; 86140; 99284